=== PATIENT | female | born 1935 | race Caucasian/White ===

== ENCOUNTER 2016-12-29 10:38 | Emergency (ER) | payer MEDICARE ==
--- NOTE | 2016-12-29 11:13 | ED ---
Chest Pain HPI - General Chief Complaint: Chest Pain Stated Complaint: HEARTBURN, VOMITING Time Seen by Provider: 12/29/16 11:00 Source: patient, RN notes reviewed Mode of arrival: ambulatory Limitations: no limitations - History of Present Illness Initial Comments: This is a 81-year-old female history of hiatal hernia with repair and history of CVA who states she was eating breakfast today when she suddenly Cenestin difficulty with swallowing she felt like she couldn't swallow she socially vomited up her breakfast. She feels like she has to burp she denies any overt pain fevers chills sweats or other symptoms no chest or abdominal pain at this time. She is not had any history of esophageal obstruction no known history of heart disease. She has no compressive palpitations or other symptoms. MD Complaint: other - Related Data Home Medications Medication Instructions Recorded Confirmed Losartan Potassium [Cozaar] 50 mg PO DAILY 04/03/14 12/29/16 ALPRAZolam [Xanax] 0.25 mg PO TID PRN 09/10/14 12/29/16 Nitroglycerin Sl Tabs [Nitrostat] 0.4 mg SUBLINGUAL Q5M PRN 09/10/14 12/29/16 Aspirin EC [Ecotrin] 81 mg PO DAILY 10/18/14 12/29/16 Ca/D3/Mag/Zinc/Edna/Crow/Mgbor 1 tab PO DAILY 10/18/14 12/29/16 [Caltrate 600+D3+Min Chew Tab] Multivit-Min/FA/Lycopene/Lut 1 tab PO DAILY 10/18/14 12/29/16 [Centrum Silver Tablet] Rivaroxaban [Xarelto] 20 mg PO DAILY 10/18/14 12/29/16 Vit C/E/Zn/Coppr/Lutein/Zeaxan 1 cap PO BID 10/18/14 12/29/16 [Preservision Areds 2 Softgel] Atenolol [Tenormin] 75 mg PO DAILY 12/29/16 12/29/16 Propafenone [Rythmol] 75 mg PO TID 12/29/16 12/29/16 Allergies Allergy/AdvReac Type Severity Reaction Status Date / Time atorvastatin calcium Allergy Abdominal Verified 12/29/16 12:51 [From Lipitor] Pain epinephrine Allergy Rapid Verified 12/29/16 12:51 Heart Rate Fubkqjg-Mlu-Edj Reductase Allergy SEVERE Verified 12/29/16 12:51 Inhibitor MUSCLE PAIN Review of Systems ROS Statement: Those systems with pertinent positive or pertinent negative responses have been documented in the HPI. ROS Other: All systems not noted in ROS Statement are negative. EKG Findings - EKG Results: EKG: interpreted by MIGUEL A, sinus rhythm (Sinus rhythm rate 62. Interval 168 QRS 74 QT since QTC of 46/412 artifact is present but this appears be a normal EKG.) Past Medical History Past Medical History: Chest Pain / Angina, CVA/TIA, Eye Disorder, GERD/Reflux, Hyperlipidemia, Hypertension, Osteoarthritis (OA) Additional Past Medical History / Comment(s): MACULAR DEGENERATION GISELLE EYES, VARICOSE VEINS, DIVERTICULOSIS, HIATAL HERNIA, HEMORRHOIDS, ANEMIA, BASAL CELL SKIN CA History of Any Multi-Drug Resistant Organisms: None Reported Past Surgical History: Appendectomy, Cholecystectomy, Heart Catheterization, Hernia Repair, Hysterectomy Additional Past Surgical History / Comment(s): LASER VEIN SURGERY,GISELLE CATARACT SURGERY, LT KNEE ARTHROSCOPY, LT KNEE REPLACEMENT, EGD, COLONOSCOPY Past Anesthesia/Blood Transfusion Reactions: No Reported Reaction Past Psychological History: No Psychological Hx Reported Smoking Status: Never smoker Past Alcohol Use History: None Reported Past Drug Use History: None Reported - Past Family History Brother(s) Family Medical History: CVA/TIA, Myocardial Infarction ([place]) Mother Family Medical History: Cancer, Deep Vein Thrombosis (DVT) Additional Family Medical History / Comment(s): BREAST Father Family Medical History: Cancer Additional Family Medical History / Comment(s): PANCREATIC General Exam - General Exam Comments Initial Comments: This is a well-developed well-nourished awake alert oriented 3 female Limitations: no limitations General appearance: alert, anxious Head exam: Present: atraumatic, normocephalic, normal inspection Eye exam: Present: normal appearance, PERRL, EOMI. Absent: scleral icterus, conjunctival injection, periorbital swelling ENT exam: Present: normal exam, mucous membranes moist Neck exam: Present: normal inspection. Absent: tenderness, meningismus, lymphadenopathy Respiratory exam: Present: normal lung sounds bilaterally. Absent: respiratory distress, wheezes, rales, rhonchi, stridor Cardiovascular Exam: Present: regular rate, normal rhythm, normal heart sounds. Absent: systolic murmur, diastolic murmur, rubs, gallop, clicks GI/Abdominal exam: Present: soft, normal bowel sounds. Absent: distended, tenderness, guarding, rebound, rigid Extremities exam: Present: normal inspection, full ROM, normal capillary refill. Absent: tenderness, pedal edema, joint swelling, calf tenderness Back exam: Present: normal inspection Neurological exam: Present: alert, oriented X3, CN II-XII intact Psychiatric exam: Present: normal affect, normal mood Skin exam: Present: warm, dry, intact, normal color. Absent: rash Course Vital Signs 12/29/16 12/29/16 12/29/16 10:49 11:14 11:25 Temperature 98.5 F Pulse Rate 67 60 Pulse Rate [ 54 L Left Pulse Oximetery] Respiratory 18 16 Rate Blood Pressure 179/88 205/97 O2 Sat by Pulse 98 96 Oximetry 12/29/16 12/29/16 12/29/16 11:57 12:17 13:32 Temperature 97.9 F Pulse Rate 68 49 L Pulse Rate [ Left Pulse Oximetery] Respiratory 20 16 Rate Blood Pressure 208/91 160/76 159/74 O2 Sat by Pulse 99 Oximetry Chest Pain MDM - MDM I did discuss the case with the patient and her . I did discuss case Dr. Christian who did recommend a barium swallow. The test was performed and the patient does demonstrate a stricture but is passing contrast material. Patient will be discharged as discussed with follow-up in the office in 3 days. She is instructed use only liquid diet for the weekend. She will return if any problems. Disposition Clinical Impression: Esophageal stricture, Dysphasia Disposition: HOME SELF-CARE Condition: Good Instructions: Esophageal Stricture (ED) Additional Instructions: Liquid diet as tolerated Referrals: Kamar Chris MD [Primary Care Provider] - 1-2 days Eric Christian MD [STAFF PHYSICIAN] - 1-2 days
[2016-12-29 11:30] LABS: Basophils # (A) 0.1 k/uL (0-0.2); Basophils % (A) 2 %; CH 31.8; CHCM 32.2; Eosinophils # (A) 0.3 k/uL (0-0.7); Eosinophils % (A) 5 %; HCT 43.5 % (34.0-46.0); HDW 2.07; HGB 13.9 gm/dL (11.4-16.0); Luc # (Auto) 0.13; Luc % (Auto) 3; Lymphocytes # (A) 1.3 k/uL (1.0-4.8); Lymphocytes % (A) 30 %; MCH 31.8 pg (25.0-35.0); MCV 99.3 fL (80.0-100.0); Mean Platelet Volume 7.3; Monocytes # (A) 0.3 k/uL (0-1.0); Monocytes % (A) 8 %; Neutrophils # (A) 2.4 k/uL (1.3-7.7); Neutrophils % (A) 53 %; RBC 4.38 m/uL (3.80-5.40); RDW 13.1 % (11.5-15.5); WBC 4.6 k/uL (3.8-10.6); WBC (Perox) 4.43
[2016-12-29 11:40] LABS: ALT 32 U/L (9-52); AST 27 U/L (14-36); Alkaline Phosphatase 80 U/L (38-126); Amylase 127 U/L (30-110); Anion Gap 8 mmol/L; Blood Urea Nitrogen 21 mg/dL (7-17); Calcium 9.2 mg/dL (8.4-10.2); Carbon Dioxide 28 mmol/L (22-30); Chloride 106 mmol/L (98-107); Glucose 94 mg/dL (74-99); Non-African American GFR(MDRD) >60 (>60 ml/min/1.73 sqM); Potassium 3.8 mmol/L (3.5-5.1); Sodium 142 mmol/L (137-145); Total Bilirubin 0.4 mg/dL (0.2-1.3); Total Protein 7.4 g/dL (6.3-8.2)
[2016-12-29 11:41] LABS: INR 1.3 (<1.2); Partial Thromboplastin Time 28.2 sec (22.0-30.0); Prothrombin Time 12.6 sec (9.0-12.0)
[2016-12-29 11:59] LABS: Creatine Kinase 64 U/L (30-135)
[2016-12-29] MEDS ORDERED: GLUCAGON 1 MG/ML VIAL IVP STA (12:07)
[2016-12-29 12:11] LABS: Troponin I <0.012 ng/mL (0.000-0.034)
[2016-12-29 12:16] LABS: Creatine Kinase MB 3.4 ng/mL (0.0-2.4)
--- NOTE | 2016-12-29 12:46 | XR ---
EXAMINATION TYPE: XR chest 2V DATE OF EXAM: 12/29/2016 COMPARISON: 04/05/2014 HISTORY: Chest pain, hypertension and prior CVA. TECHNIQUE: Frontal and lateral views of the chest are obtained. FINDINGS: Biapical lucencies, pulmonary hyperinflation and tapering of the pulmonary vasculature rel ate to underlying COPD. Eventration of the right hemidiaphragm and chronic left basilar subsegmental atelectasis or pleural parenchymal scarring are noted. There is generalized osseous demineralization and mild degenerative changes of the thoracic spine. Atheromatous changes are seen of the abdominal a jonathan. Cholecystectomy clips are noted within the right upper quadrant. Cardiac size is within normal limits. IMPRESSION: Radiographic sequela of COPD with no focal consolidation to suggest pneumonia. No acute cardiac pulmonary process.
--- NOTE | 2016-12-29 15:07 | FL ---
EXAMINATION TYPE: FL esophagus cervic/pharynx DATE OF EXAM: 12/29/2016 HISTORY: Prior Angela fundoplication in 2013. Patient describes food getting stuck in her distal esop hagus for months with worsening today. COMPARISON: NONE TECHNIQUE: A single contrast esophagram is performed utilizing barium. Fluoroscopy time of 1 minute 15 seconds. FINDINGS: The proximal esophagus demonstrates normal esophageal motility with a nonocclusive short segment stri cture at the gastroesophageal junction seen on images 18, 19, 20, and 21. Small hiatal hernia is also evident. No evidence of leak is present. Mild dilatation of the proximal esophagus is secondary to t he moderate degree stricture. IMPRESSION: Short segment distal esophageal moderate degree stricture just above the gastroesophagea l junction and small residual or recurrent hiatal hernia.
[2016-12-29 16:10] VITALS: BP 163/75; PULSE 50; RESP 18; TEMP 97.1
== END 2016-12-29 16:02 | disposition home or self-care (01) ==
LOC: EC 10:38
DX: K22.2 Esophageal obstruction (principal); K21.9 Gastro-esophageal reflux disease without esophagitis; I10 Essential (primary) hypertension; Z85.828 Personal history of other malignant neoplasm of skin; Z95.5 Presence of coronary angioplasty implant and graft; Z86.73 Personal history of transient ischemic attack (TIA), and cerebral infarction without residual deficits; Z79.82 Long term (current) use of aspirin; Z79.899 Other long term (current) drug therapy; Z88.8 Allergy status to other drugs, medicaments and biological substances
CPT/HCPCS: 99285; 96374; 36415; 93005; 83880; 80053; 82150; 82550; 82553; 83690; 83735; 84484; 85025; 85610; 85730; 71020; 74210; J1610

== ENCOUNTER 2017-01-03 09:15 | Day surgery (SDC) | payer MEDICARE ==
[2017-01-02 09:08] VITALS: BMI 20.9
[~2017-01-03 09:15] MED LIST: LACTATED RINGERS 1,000 ML IV SCH; LIDOCAINE 1% 20 ML VIAL (10MG/ML) FOR IV START INTRADERMA PRN
[2017-01-03 09:54] VITALS: TEMP 97.4
[2017-01-03] MEDS ORDERED: LIDOCAINE 1% INJ 10MG/ML (20 ML MDV) ONE (13:07)
[2017-01-03] MEDS ORDERED: PROPOFOL 10 MG/ML 20 ML VIAL IV ONE (13:07)
--- NOTE | 2017-01-03 13:10 | P.GSHP ---
History of Present Illness H&P Date: 01/03/17 Chief Complaint: Dysphagia This is a 81-year-old female who presents today for EGD. Patient's a known history of dysphagia and GERD. He's had trouble swallowing solid foods. Past Medical History Past Medical History: Atrial Fibrillation, Chest Pain / Angina, CVA/TIA, Eye Disorder, GERD/Reflux, Hyperlipidemia, Hypertension, Osteoarthritis (OA) Additional Past Medical History / Comment(s): MACULAR DEGENERATION GISELLE EYES, HX. VARICOSE VEINS, DIVERTICULOSIS, HIATAL HERNIA, HEMORRHOIDS, ANEMIA, BASAL CELL SKIN CA, stroked 2013-no residual effects, recent problems w/dysphagia- seen in [facility] 12-29-16 History of Any Multi-Drug Resistant Organisms: None Reported Past Surgical History: Appendectomy, Cholecystectomy, Heart Catheterization, Hernia Repair, Hysterectomy Additional Past Surgical History / Comment(s): LASER VEIN SURGERY,GISELLE CATARACT SURGERY, LT KNEE ARTHROSCOPY, LT KNEE REPLACEMENT, EGD, COLONOSCOPY, radha fundoplasty 2013 Past Anesthesia/Blood Transfusion Reactions: No Reported Reaction Additional Past Anesthesia/Blood Transfusion Reaction / Comment(s): claustrophobic Smoking Status: Never smoker - Past Family History Brother(s) Family Medical History: CVA/TIA, Myocardial Infarction ([place]) Mother Family Medical History: Cancer, Deep Vein Thrombosis (DVT) Additional Family Medical History / Comment(s): BREAST Father Family Medical History: Cancer Additional Family Medical History / Comment(s): PANCREATIC Medications and Allergies Home Medications Medication Instructions Recorded Confirmed Type Losartan Potassium [Cozaar] 50 mg PO DAILY 04/03/14 01/03/17 History ALPRAZolam [Xanax] 0.25 mg PO TID PRN 09/10/14 01/03/17 History Nitroglycerin Sl Tabs [Nitrostat] 0.4 mg SUBLINGUAL Q5M PRN 09/10/14 01/02/17 History Aspirin EC [Ecotrin] 81 mg PO DAILY 10/18/14 01/03/17 History Ca/D3/Mag/Zinc/Edna/Crow/Mgbor 1 tab PO DAILY 10/18/14 01/03/17 History [Caltrate 600+D3+Min Chew Tab] Multivit-Min/FA/Lycopene/Lut 1 tab PO DAILY 10/18/14 01/03/17 History [Centrum Silver Tablet] Rivaroxaban [Xarelto] 20 mg PO DAILY 10/18/14 01/03/17 History Vit C/E/Zn/Coppr/Lutein/Zeaxan 1 cap PO BID 10/18/14 01/03/17 History [Preservision Areds 2 Softgel] Atenolol [Tenormin] 75 mg PO DAILY 12/29/16 01/03/17 History Propafenone [Rythmol] 75 mg PO TID 12/29/16 01/03/17 History Allergies Allergy/AdvReac Type Severity Reaction Status Date / Time atorvastatin calcium Allergy Abdominal Verified 01/02/17 08:43 [From Lipitor] Pain epinephrine Allergy Rapid Verified 01/02/17 08:43 Heart Rate Npmhadb-Jfg-Udq Reductase Allergy SEVERE Verified 01/02/17 08:43 Inhibitor MUSCLE PAIN Surgical - Exam Vital Signs Temp Pulse Resp BP Pulse Ox 97.4 F L 60 16 186/81 98 01/03/17 09:53 01/03/17 09:53 01/03/17 09:53 01/03/17 09:53 01/03/17 09:53 - General well developed, no distress - Eyes PERRL - ENT normal pinna - Neck no masses - Respiratory normal expansion - Cardiovascular Rhythm: regular - Abdomen Abdomen: soft, non tender Assessment and Plan Assessment: Dysphagia, GERD. History of hiatal hernia. We'll perform EGD.
--- NOTE | 2017-01-03 13:22 | P.OP ---
Date of Procedure: 01/03/17 Preoperative Diagnosis: GERD Dysphagia Postoperative Diagnosis: Esophageal stricture Procedure(s) Performed: EGD with balloon dilatation Anesthesia: MAC Surgeon: rEic Christian Pathology: none sent Condition: stable Description of Procedure: The patient's placed on the endoscopy table lateral position. She received IV sedation. The gastroscope placed oropharynx and passed in the esophagus. The scope was then placed through the GE junction into stomach and then through the pylorus. The first portion duodenum appeared normal. Scope was brought back the antrum this appeared normal. Scope was unretroflexed and the patient a previous fundal plication wrap. Scope was then brought back. There appeared to be evidence of a small hiatal hernia. The opening through the fundal plication appeared to be quite tight. At this point a 20 mm balloon was placed across fundal plication area. It was unclear if the fundoplication had slipped. There is evidence of an esophageal stricture and this was dilated with the balloon. There is no evidence of any injury to the mucosa once the balloon was inflated. The balloon was withdrawn. The scope passed easily beyond the GE junction. The scope was then withdrawn. The proximal esophagus appeared normal. Scope was withdrawn for patient.
[2017-01-03 13:43] VITALS: RESP 16
[2017-01-03 14:08] VITALS: BP 133/79; PULSE 59
== END 2017-01-03 14:18 | disposition home or self-care (01) ==
LOC: ORWHC2ENDO 09:15
PROVIDERS: ATTEND Surgery
DX: K22.2 Esophageal obstruction (principal); K21.9 Gastro-esophageal reflux disease without esophagitis; I48.91 Unspecified atrial fibrillation; Z86.73 Personal history of transient ischemic attack (TIA), and cerebral infarction without residual deficits; E78.5 Hyperlipidemia, unspecified; I10 Essential (primary) hypertension; M19.90 Unspecified osteoarthritis, unspecified site; H35.30 Unspecified macular degeneration; Z85.828 Personal history of other malignant neoplasm of skin; Z79.82 Long term (current) use of aspirin; Z79.01 Long term (current) use of anticoagulants; Z79.899 Other long term (current) drug therapy; Z88.8 Allergy status to other drugs, medicaments and biological substances
CPT/HCPCS: 43249; J2001; J2704; C1726

== ENCOUNTER 2017-05-10 20:23 | Emergency (ER) | payer MEDICARE ==
[2017-05-10 20:32] VITALS: TEMP 97.1
--- NOTE | 2017-05-10 21:09 | ED ---
General Adult HPI - General Chief complaint: Nausea/Vomiting/Diarrhea Stated complaint: blood in urine Time Seen by Provider: 05/10/17 21:01 Source: patient, family, RN notes reviewed Mode of arrival: ambulatory Limitations: no limitations - History of Present Illness Initial comments: Patient is a pleasant 81-year-old female presenting to the emergency Department with hematuria. Symptoms have been occurring for several weeks. Patient is on Xarelto secondary to history of stroke and atrial fibrillation. No dysuria. Patient did have some diarrhea however that has resolved. No known rectal bleeding. Patient has had dark urine with concern for blood. No abdominal pain. - Related Data Home Medications Medication Instructions Recorded Confirmed Losartan Potassium [Cozaar] 50 mg PO DAILY 04/03/14 05/10/17 ALPRAZolam [Xanax] 0.25 mg PO TID PRN 09/10/14 05/10/17 Nitroglycerin Sl Tabs [Nitrostat] 0.4 mg SUBLINGUAL Q5M PRN 09/10/14 05/10/17 Rivaroxaban [Xarelto] 20 mg PO DAILY 10/18/14 05/10/17 Atenolol [Tenormin] 75 mg PO DAILY 12/29/16 05/10/17 Vit C/E/Zn/Coppr/Lutein/Zeaxan 1 cap PO BID 03/19/17 05/10/17 [Preservision Areds 2 Softgel] Propafenone [Rythmol] 75 mg PO Q8HR 05/10/17 05/10/17 Previous Rx's Medication Instructions Recorded Sulfamethox-Tmp 800-160Mg [Bactrim 1 each PO Q12HR #20 tab 05/10/17 DS 800-160 mg] Allergies Allergy/AdvReac Type Severity Reaction Status Date / Time atorvastatin calcium Allergy Abdominal Verified 05/10/17 21:18 [From Lipitor] Pain epinephrine Allergy Rapid Verified 05/10/17 21:18 Heart Rate levofloxacin [From Levaquin] Allergy Unknown Verified 05/10/17 21:18 rosuvastatin [From Crestor] Allergy Unknown Verified 05/10/17 21:18 Udqjwwc-Asj-Imo Reductase Allergy SEVERE Verified 05/10/17 21:18 Inhibitor MUSCLE PAIN Review of Systems ROS Statement: Those systems with pertinent positive or pertinent negative responses have been documented in the HPI. ROS Other: All systems not noted in ROS Statement are negative. Constitutional: Denies: fever Eyes: Denies: eye pain ENT: Denies: ear pain Respiratory: Denies: cough Cardiovascular: Denies: chest pain Endocrine: Denies: fatigue Gastrointestinal: Denies: abdominal pain, nausea, vomiting Genitourinary: Reports: hematuria. Denies: urgency, dysuria, frequency Musculoskeletal: Denies: back pain Skin: Denies: rash Neurological: Denies: weakness Past Medical History Past Medical History: Atrial Fibrillation, Chest Pain / Angina, CVA/TIA, Eye Disorder, GERD/Reflux, Hyperlipidemia, Hypertension, Osteoarthritis (OA) Additional Past Medical History / Comment(s): MACULAR DEGENERATION GISELLE EYES, HX. VARICOSE VEINS, DIVERTICULOSIS, HIATAL HERNIA, HEMORRHOIDS, ANEMIA, BASAL CELL SKIN CA, stroked 2013-no residual effects, recent problems w/dysphagia- seen in EC 12-29-16 History of Any Multi-Drug Resistant Organisms: None Reported Past Surgical History: Appendectomy, Cholecystectomy, Heart Catheterization, Hernia Repair, Hysterectomy Additional Past Surgical History / Comment(s): LASER VEIN SURGERY,GISELLE CATARACT SURGERY, LT KNEE ARTHROSCOPY, LT KNEE REPLACEMENT, EGD, COLONOSCOPY, radha fundoplasty 2014, " throat stretched." Past Anesthesia/Blood Transfusion Reactions: No Reported Reaction Additional Past Anesthesia/Blood Transfusion Reaction / Comment(s): claustrophobic Past Psychological History: Anxiety Smoking Status: Never smoker Past Alcohol Use History: None Reported Past Drug Use History: None Reported - Past Family History Brother(s) Family Medical History: CVA/TIA, Myocardial Infarction ([place]) Mother Family Medical History: Cancer, Deep Vein Thrombosis (DVT) Additional Family Medical History / Comment(s): BREAST Father Family Medical History: Cancer Additional Family Medical History / Comment(s): PANCREATIC General Exam Limitations: no limitations General appearance: alert, in no apparent distress Head exam: Present: atraumatic Eye exam: Present: normal appearance, PERRL ENT exam: Present: normal oropharynx Neck exam: Present: normal inspection Respiratory exam: Present: normal lung sounds bilaterally Cardiovascular Exam: Present: regular rate, normal rhythm. Absent: irregular rhythm GI/Abdominal exam: Present: soft. Absent: distended, tenderness, guarding, rebound, rigid Extremities exam: Present: normal inspection Neurological exam: Present: alert Psychiatric exam: Present: normal affect, normal mood Skin exam: Present: normal color Course Vital Signs 05/10/17 05/10/17 20:25 20:33 Temperature 97.1 F L Pulse Rate 66 Respiratory 18 Rate Blood Pressure 210/100 203/91 O2 Sat by Pulse 97 Oximetry EKG Findings - EKG Comments: EKG Findings:: Sinus bradycardia 53. NH 182. QRS 88. QT 454. QTC 426. Normal axis. Normal QRS. No acute ST change. Medical Decision Making - Medical Decision Making Patient reevaluated. Patient and family updated on results and plan and need for follow-up. - Lab Data Lab Results 05/10/17 Range/Units 21:07 Urine Color Red Urine Appearance Turbid H (Clear) Urine pH 5.5 (5.0-8.0) Ur Specific [place] 1.020 (1.001-1.035) Urine Protein 2+ H (Negative) Urine Glucose (UA) Negative (Negative) Urine Ketones Negative (Negative) Urine Blood Large H (Negative) Urine Nitrite Positive H (Negative) Urine Bilirubin Negative (Negative) Urine Urobilinogen <2.0 (<2.0) mg/dL Ur Leukocyte Esterase Large H (Negative) Urine RBC >182 H (0-5) /hpf Urine WBC 73 H (0-5) /hpf Urine Bacteria Rare H (None) /hpf Urine Mucus Few H (None) /hpf Urine Yeast (Budding) Many H (None) /hpf Disposition Clinical Impression: Urinary tract infection, Hematuria Disposition: HOME SELF-CARE Condition: Stable Instructions: Hematuria (ED), Urinary Tract Infection in Women (ED) Additional Instructions: Please follow-up with primary care physician in the next day or 2 for recheck. Hold Xarelto for the next 2-3 days, until further advised by primary care physician. Return for fevers, vomiting, increased pain, worsening symptoms or other concerns. If symptoms continue, you will need urology evaluation Prescriptions: Sulfamethox-Tmp 800-160Mg [Bactrim DS 800-160 mg] 1 each PO Q12HR #20 tab Referrals: Kamar Chris MD [Primary Care Provider] - 1-2 days Andrez Albarado MD [STAFF PHYSICIAN] - 1-2 days Time of Disposition: 22:23
[2017-05-10 21:21] LABS: Appearance,Urine Turbid (Clear); Bacteria,Urine Rare /hpf; Bilirubin,Urine Negative (Negative); Blood,Urine Large (Negative); Budding Yeast,Urine Many /hpf; Color,Urine Red; Glucose,Urine (UA) Negative (Negative); Ketones,Urine Negative (Negative); Leukocyte Esterase,Urine Large (Negative); Mucus,Urine Few /hpf; Nitrite,Urine Positive (Negative); PH, Urine 5.5 (5.0-8.0); Protein,Urine 2+ (Negative); RBC,Urine >182 /hpf (0-5); Urobilinogen,Urine <2.0 mg/dL (<2.0); WBC,Urine 73 /hpf (0-5)
[2017-05-10 22:35] VITALS: BP 167/79; PULSE 51; RESP 16
== END 2017-05-10 22:37 | disposition home or self-care (01) ==
LOC: EC 20:23
DX: N39.0 Urinary tract infection, site not specified (principal); I48.91 Unspecified atrial fibrillation; I10 Essential (primary) hypertension; Z86.73 Personal history of transient ischemic attack (TIA), and cerebral infarction without residual deficits; Z85.828 Personal history of other malignant neoplasm of skin; Z95.5 Presence of coronary angioplasty implant and graft; Z79.01 Long term (current) use of anticoagulants; Z79.899 Other long term (current) drug therapy; Z88.8 Allergy status to other drugs, medicaments and biological substances; Z88.1 Allergy status to other antibiotic agents
CPT/HCPCS: 81001; 87086; 93005; 99283

== ENCOUNTER → 2017-05-31 | Outpatient (CLI) | payer MEDICARE ==
--- NOTE | 2017-05-31 18:54 | US ---
EXAMINATION TYPE: US kidneys/renal and bladder DATE OF EXAM: 05/31/2017 COMPARISON: CT 10/20/2013 CLINICAL HISTORY: Hematuria R31.9. EXAM MEASUREMENTS: Right Kidney: 9.2 x 3.7 x 4.4 cm Left Kidney: 10.5 x 5.0 x 4.9 cm Right Kidney: Cystic area mid pole measuring 1.5 x 1.1 x 1.3 cm, possible parapelvic cyst vs prominen t renal pelvis Left Kidney: Cystic area mid pole measuring 0.6 x 0.7 x 0.8 cm, possible parapelvic cyst Bladder: wnl Bilateral Jets seen: Yes There is no evidence for hydronephrosis at this point in time. No nephrolithiasis is seen. The urina ry bladder is anechoic. Bilateral ureteral jets are seen. IMPRESSION: Simple cysts noted bilaterally. Mild renal parenchymal thinning.
== END | disposition home or self-care (01) ==
LOC: RADUSWWP 15:08
PROVIDERS: ATTEND Family Medicine
DX: R31.9 Hematuria, unspecified (principal); N28.1 Cyst of kidney, acquired
CPT/HCPCS: 76770

== ENCOUNTER → 2017-09-13 | Outpatient (CLI) | payer MEDICARE ==
--- NOTE | 2017-09-13 14:19 | CT ---
EXAMINATION TYPE: CT abdomen pelvis w con DATE OF EXAM: 09/13/2017 HISTORY: Patient complains of chronic microscopic hematuria. CT DLP: 405.6mGycm Automated Exposure Control for Dose Reduction was Utilized. CONTRAST: CT scan of the abdomen and pelvis is performed with IV Contrast, patient injected with 100 mL of Isov ue 300. COMPARISON: Renal ultrasound dated 05/31/2017. CT abdomen pelvis dated 10/20/2013. FINDINGS: LUNG BASES: No significant abnormality is appreciated. LIVER/GB: Stable fluid attenuated left hepatic lobe cyst measures approximately 1 cm. No additional m asses are identified within the liver. No intrahepatic biliary duct dilatation. Cholecystectomy clips are noted within the right upper quadrant. PANCREAS: No significant abnormality is seen. No pancreatic ductal dilatation. SPLEEN: No splenomegaly. ADRENALS: Very mild symmetric thickening of the adrenal glands is seen although the adrenal glands ma intain their normal adreniform shape, therefore findings likely relate to benign adrenal gland hyperp lasia. KIDNEYS: Approximately 4 mm right lower pole renal lesion seen on coronal series 8 image 49 is too sm all to accurately characterize. This is only minimally increased in size from the prior exam of 014 where this measured 2 to 3 mm. Note is again made of bilateral extrarenal pelvises and mild pelvo caliectasis. No hydronephrosis or evidence of obstructive uropathy. Urinary bladder is incompletely d istended although no gross abnormality is identified. BOWEL: Surgical clips are noted at the gastroesophageal junction with a small distal esophageal diver ticulum, likely portion diverticulum. Small amount retained contrast is seen within the distal esopha femi that may relate to mild gastroesophageal reflux or delayed propulsion. Multiple colonic diverticu la are seen without pericolonic fat stranding. Mild amount of retained colonic stool is noted. Contra st extends to the ascending colon and remainder the colon is somewhat limited in evaluation. Terminal ileum is unremarkable. No large or small bowel dilatation. LYMPH NODES: No greater than 1cm abdominal or pelvic lymph nodes are appreciated. OSSEOUS STRUCTURES: There is a levoscoliosis of the lumbar spine. Multilevel moderate degenerative ch anges are noted. Sacroiliac joint sclerosis is also likely degenerative as well as degenerative cysti c changes of the pubic symphysis and mild femoral acetabular arthropathy. There is a grade 2 anteroli sthesis of L4 on L5 presumed to be on a degenerative basis. OTHER: Extensive atheromatous plaquing is seen of the abdominal aorta and its branches. Abdominal aor ta is of normal course and caliber. IMPRESSION: No evidence of obstructive uropathy or suspicious renal mass. There is a right lower pole 4 mm renal lesion that is too small to accurately characterize for which surveillance could be performed as this is only very minimally increased in size in comparison to exam of 10/20/2013. Urinary bladder is incom pletely distended although no gross abnormality is seen to correspond with this patient's microscopic hematuria.
== END | disposition home or self-care (01) ==
LOC: RADCTMAIN 11:24
PROVIDERS: ATTEND Urology
DX: N28.89 Other specified disorders of kidney and ureter (principal); R31.9 Hematuria, unspecified
CPT/HCPCS: 82565; 84520; 74177; 36415; Q9967

== ENCOUNTER → 2017-12-12 | Day surgery (SDC) | payer MEDICARE ==
[2017-12-11 09:32] VITALS: BMI 22.6
== END ==
LOC: ORWHC2ENDO 08:18
PROVIDERS: ATTEND Internal Medicine Gastroenterology
DX: Z53.9 Procedure and treatment not carried out, unspecified reason (principal)

== ENCOUNTER → 2017-12-24 | Outpatient (CLI) | payer MEDICARE ==
--- NOTE | 2017-12-26 10:48 | MM ---
Reason for exam: screening (asymptomatic). Last mammogram was performed 1 year ago. History: Patient is postmenopausal and history of other cancer. Family history of breast cancer in mother at age 67. Physical Findings: A clinical breast exam by your physician is recommended on an annual basis and results should be correlated with mammographic findings. MG 3D Screening Mammo W/Cad Bilateral CC and MLO view(s) were taken. Prior study comparison: December 22, 2016, bilateral MG 3d screening mammo w/cad. September 14, 2015, bilateral MG screening mammo w CAD. There are scattered fibroglandular densities. There is chronic nodularity bilaterally. No significant changes when compared with prior studies. ASSESSMENT: Benign, BI-RAD 2 RECOMMENDATION: Routine screening mammogram of both breasts in 1 year.
== END ==
LOC: RADMAMWWP 09:26
PROVIDERS: ATTEND Obstetrics & Gynecology
DX: Z12.31 Encounter for screening mammogram for malignant neoplasm of breast (principal); Z80.3 Family history of malignant neoplasm of breast
CPT/HCPCS: 77063; 77067

== ENCOUNTER → 2018-11-14 | Outpatient (CLI) | payer MEDICARE ==
[2018-11-14 17:10] LABS: Chol/HDL Ratio 2.72; LDL Cholesterol,Calculated 71.2 mg/dL (0.0-131.0); VLDL Calculation 26.8 mg/dL (5.00-40.00)
== END | disposition home or self-care (01) ==
LOC: LABWHC1 07:39
PROVIDERS: ATTEND Internal Medicine Interventional Cardiology
DX: E78.5 Hyperlipidemia, unspecified (principal)
CPT/HCPCS: 36415; 80061; 82550; 84450; 84460

== ENCOUNTER 2018-12-08 22:41 | Inpatient (IN) | payer MEDICARE ==
[2018-12-08] MEDS ORDERED: ACETAMINOPHEN TAB 325 MG TAB PO STA (23:28)
[2018-12-08 23:43] LABS: Basophils # (A) 0.1 k/uL (0-0.2); Basophils % (A) 1 %; Eosinophils # (A) 0.1 k/uL (0-0.7); Eosinophils % (A) 1 %; HCT 34.3 % (34.0-46.0); HGB 11.5 gm/dL (11.4-16.0); Lymphocytes # (A) 0.9 k/uL (1.0-4.8); Lymphocytes % (A) 11 %; MCH 32.6 pg (25.0-35.0); MCHC 33.6 g/dL (31.0-37.0); MCV 96.9 fL (80.0-100.0); Mean Platelet Volume 6.4; Monocytes # (A) 0.4 k/uL (0-1.0); Monocytes % (A) 5 %; Neutrophils # (A) 6.2 k/uL (1.3-7.7); Neutrophils % (A) 80 %; Platelet Count 215 k/uL (150-450); RBC 3.54 m/uL (3.80-5.40); RDW 12.6 % (11.5-15.5); WBC 7.8 k/uL (3.8-10.6)
--- NOTE | 2018-12-08 23:46 | XR ---
EXAMINATION TYPE: XR KUB DATE OF EXAM: 12/08/2018 COMPARISON: NONE HISTORY: Abdominal pain nausea. Fever TECHNIQUE: Single view upright FINDINGS: There is a few small bowel fluid levels with air. There are clips from cholecystectomy. The re is no evidence of a mass. Lung bases appear clear. There are no pathologic calcifications over the kidneys. IMPRESSION: There are a few small bowel fluid levels that could relate to ileus. No free air.
--- NOTE | 2018-12-08 23:47 | XR ---
EXAMINATION TYPE: XR chest 2V DATE OF EXAM: 12/08/2018 COMPARISON: 03/19/2017 HISTORY: Nausea TECHNIQUE: Frontal and lateral views of the chest are obtained. FINDINGS: There is no heart failure nor confluent pneumonic infiltrate. Costophrenic angles are tila r. Heart size is normal. Thoracic aorta is atheromatous. There is osteopenia. There is some arthritic change in the shoulder joints. IMPRESSION: No active cardiopulmonary disease. Normal heart. No change.
[2018-12-08 23:58] LABS: Albumin 3.7 g/dL (3.5-5.0); Calcium 8.8 mg/dL (8.4-10.2); Potassium 3.3 mmol/L (3.5-5.1); Total Bilirubin 0.5 mg/dL (0.2-1.3); Total Protein 6.5 g/dL (6.3-8.2)
[2018-12-09 00:25] LABS: Appearance,Urine Cloudy (Clear); Bacteria,Urine Occasional /hpf; Bilirubin,Urine Negative (Negative); Blood,Urine Small (Negative); Color,Urine Yellow; Glucose,Urine (UA) Negative (Negative); Ketones,Urine Negative (Negative); Leukocyte Esterase,Urine Large (Negative); Mucus,Urine Rare /hpf; Nitrite,Urine Positive (Negative); PH, Urine 5.5 (5.0-8.0); Protein,Urine 1+ (Negative); RBC,Urine 39 /hpf (0-5); Specific Gravity,Urine 1.014 (1.001-1.035); Urobilinogen,Urine <2.0 mg/dL (<2.0)
--- NOTE | 2018-12-09 00:36 | CT ---
EXAMINATION TYPE: CT abdomen pelvis wo con DATE OF EXAM: 12/09/2018 COMPARISON: 09/13/2017 HISTORY: Right flank pain with ileus. LOW BACK PAIN. FEVER CT DLP: 400.6 mGycm Automated exposure control for dose reduction was used. TECHNIQUE: Helical acquisition of images was performed from the lung bases through the pelvis. FINDINGS: Multiple axial sections were obtained from the diaphragm to the floor the pelvis with no contrast. Lois ng bases are clear of consolidation. There is no pleural effusion. Heart size is normal. There is sma ll hiatal hernia. There are surgical clips at the gastric fundus. There are small calcified splenic g ranulomata. There is no evidence of pancreatic mass. There are clips from cholecystectomy. Bile ducts are not dilated. Liver shows no focal defect. There is no adrenal mass. Kidneys have normal size. There is mild right-sided hydronephrosis but no d efinite ureteral calculus seen. Bladder distends smoothly. There is some fullness of the proximal rig ht ureter. There is mild right-sided perinephric edema. Abdominal aorta is atheromatous. There is no retroperitoneal adenopathy. There is no inguinal hernia. There is no free fluid in the pelvis. There is no sign of a bowel obstru ction. Appendix is not seen. There is no sign of thickened appendix. There is no free air. There is n o mesenteric edema. There is a first-degree L4-5 spondylolisthesis. There is no compression fracture. Bony pelvis is intact. IMPRESSION: THERE IS MILD RIGHT-SIDED HYDRONEPHROSIS AND PROXIMAL HYDROURETER. NO DEFINITE OBSTRUCTING CALCULUS S EEN. THERE IS MILD RIGHT SIDE PERINEPHRIC EDEMA. THIS COULD RELATE TO OBSTRUCTION DUE TO NONOPAQUE ST ONE OR MASS OR RECENTLY PASSED STONE OR PYELONEPHRITIS. ABNORMALITY IS NEW COMPARED TO LAST EXAM. FOL LOW-UP RECOMMENDED.
[2018-12-09] MEDS ORDERED: cefTRIAXone IN SWFI 1,000 MG/10 ML SYRINGE IVP STA (00:44)
[2018-12-09] MEDS ORDERED: NALOXONE 0.4 MG/ML 1 ML VIAL IV PRN (00:50)
--- NOTE | 2018-12-09 00:50 | ED ---
Abdominal Pain HPI - General Chief Complaint: Abdominal Pain Stated Complaint: Shaking, Nausea Time Seen by Provider: 12/08/18 22:51 Source: patient, family, RN notes reviewed Mode of arrival: ambulatory Limitations: no limitations - History of Present Illness Initial Comments: This is a 83-year-old female who presents with complaints the onset of shaking chills this morning also decreased urine output. She complains also some vague right-sided flank pain. No overt fevers nausea vomiting diarrhea she denies any hematuria. No history kidney stone shows evidence for diverticular disease however. Currently no other modifying factors no cough or phlegm production no pain with movement no pain with breathing this Sunday pain to the right CVA betina on. MD Complaint: flank pain, other - Related Data Home Medications Medication Instructions Recorded Confirmed Nitroglycerin Sl Tabs [Nitrostat] 0.4 mg SUBLINGUAL Q5M PRN 09/10/14 12/08/18 Rivaroxaban [Xarelto] 20 mg PO DAILY 10/18/14 12/08/18 Atenolol [Tenormin] 50 mg PO DAILY 12/29/16 12/08/18 Propafenone [Rythmol] 75 mg PO Q8HR 05/10/17 12/08/18 Aspirin [Adult Low Dose Aspirin EC] 81 mg PO DAILY 12/11/17 12/08/18 Chlorthalidone 25 mg PO DAILY 12/11/17 12/08/18 hydrALAZINE HCL [Apresoline] 25 mg PO BID 12/11/17 12/08/18 Losartan [Cozaar] 50 mg PO DAILY 12/08/18 12/08/18 Rosuvastatin Calcium [Crestor] 5 mg PO Q48H 12/08/18 12/08/18 Allergies Allergy/AdvReac Type Severity Reaction Status Date / Time atorvastatin calcium Allergy Abdominal Verified 12/08/18 23:09 [From Lipitor] Pain epinephrine Allergy Rapid Verified 12/08/18 23:09 Heart Rate levofloxacin [From Levaquin] Allergy Unknown Verified 12/08/18 23:09 rosuvastatin [From Crestor] Allergy severe Verified 12/08/18 23:09 muscle pain Ecghztb-Iwk-Htg Reductase Allergy SEVERE Verified 12/08/18 23:09 Inhibitor MUSCLE PAIN Review of Systems ROS Statement: Those systems with pertinent positive or pertinent negative responses have been documented in the HPI. ROS Other: All systems not noted in ROS Statement are negative. Past Medical History Past Medical History: Atrial Fibrillation, Cancer, Chest Pain / Angina, CVA/TIA, Eye Disorder, GERD/Reflux, Hyperlipidemia, Hypertension, Osteoarthritis (OA) Additional Past Medical History / Comment(s): MACULAR DEGENERATION GISELLE EYES, DIVERTICULOSIS, HIATAL HERNIA (SURGERY)., HEMORRHOIDS, ANEMIA, BASAL CELL SKIN CA, CVA 2013-NO RESIDUAL EFFECTS., DYSPHAGIA - STATES CURRENTLY FOOD FEELS LIKE IT IS GETTING STUCK., STATES AFTER EATING SHE HAS BLOATING, GAS AND DIARRHEA., CLAUSTROPHOBIC. History of Any Multi-Drug Resistant Organisms: None Reported Past Surgical History: Appendectomy, Cholecystectomy, Heart Catheterization, Hernia Repair, Hysterectomy Additional Past Surgical History / Comment(s): LASER VEIN SURGERY,GISELLE CATARACT. LT KNEE ARTHROSCOPY, LT KNEE REPLACEMENT, EGD WITH DILATION., COLONOSCOPY, DIONISIO FUDOPLASTY (2013) . Past Anesthesia/Blood Transfusion Reactions: No Reported Reaction Additional Past Anesthesia/Blood Transfusion Reaction / Comment(s): claustrophobic Past Psychological History: Anxiety Smoking Status: Never smoker Past Alcohol Use History: None Reported Past Drug Use History: None Reported - Past Family History Brother(s) Family Medical History: CVA/TIA, Myocardial Infarction ([place]) Mother Family Medical History: Cancer, Deep Vein Thrombosis (DVT) Additional Family Medical History / Comment(s): BREAST CANCER Father Family Medical History: Cancer Additional Family Medical History / Comment(s): PANCREATIC CANCER General Exam - General Exam Comments Initial Comments: This is a well-developed well-nourished awake alert oriented 3 female Limitations: no limitations General appearance: alert, in no apparent distress Head exam: Present: atraumatic, normocephalic, normal inspection Eye exam: Present: normal appearance, PERRL, EOMI. Absent: scleral icterus, conjunctival injection, periorbital swelling ENT exam: Present: normal exam, mucous membranes moist Neck exam: Present: normal inspection. Absent: tenderness, meningismus, lymphadenopathy Respiratory exam: Present: normal lung sounds bilaterally. Absent: respiratory distress, wheezes, rales, rhonchi, stridor Cardiovascular Exam: Present: regular rate, normal rhythm, normal heart sounds. Absent: systolic murmur, diastolic murmur, rubs, gallop, clicks GI/Abdominal exam: Present: soft, tenderness (Mild right flank tenderness no guarding rebound masses or bruits), normal bowel sounds. Absent: distended, guarding, rebound, rigid Rectal exam: Present: deferred Extremities exam: Present: normal inspection, full ROM, normal capillary refill. Absent: tenderness, pedal edema, joint swelling, calf tenderness Back exam: Present: normal inspection, full ROM, CVA tenderness (R). Absent: muscle spasm, paraspinal tenderness, vertebral tenderness, rash noted Neurological exam: Present: alert, oriented X3, CN II-XII intact Psychiatric exam: Present: normal affect, normal mood Skin exam: Present: warm, dry, intact, normal color. Absent: rash Course Vital Signs 12/08/18 12/08/18 12/09/18 22:45 23:20 00:02 Temperature 99.2 F 102.1 F H Pulse Rate 84 82 86 Respiratory 16 15 18 Rate Blood Pressure 118/72 125/62 138/62 O2 Sat by Pulse 94 L 96 96 Oximetry 12/09/18 00:41 Temperature 102.6 F H Pulse Rate 79 Respiratory 14 Rate Blood Pressure 122/59 O2 Sat by Pulse 93 L Oximetry - Reevaluation(s) Reevaluation #1: 12/09/18 00:48 Reevaluation the patient during the course of initial evaluation revealed no change in her status Medical Decision Making - Medical Decision Making I did discuss the findings with the patient and her as well as other family members patient will be admitted for treatment of UTI and pyelonephritis I did discuss the case with Dr. Chris - Lab Data Result diagrams: 12/08/18 23:20 12/08/18 23:20 Lab Results 12/08/18 12/08/18 12/08/18 Range/Units 23:20 23:20 23:20 WBC 7.8 (3.8-10.6) k/uL RBC 3.54 L (3.80-5.40) m/uL Hgb 11.5 (11.4-16.0) gm/dL Hct 34.3 (34.0-46.0) % MCV 96.9 (80.0-100.0) fL MCH 32.6 (25.0-35.0) pg MCHC 33.6 (31.0-37.0) g/dL RDW 12.6 (11.5-15.5) % Plt Count 215 (150-450) k/uL Neutrophils % 80 % Lymphocytes % 11 % Monocytes % 5 % Eosinophils % 1 % Basophils % 1 % Neutrophils # 6.2 (1.3-7.7) k/uL Lymphocytes # 0.9 L (1.0-4.8) k/uL Monocytes # 0.4 (0-1.0) k/uL Eosinophils # 0.1 (0-0.7) k/uL Basophils # 0.1 (0-0.2) k/uL Sodium 138 (137-145) mmol/L Potassium 3.3 L (3.5-5.1) mmol/L Chloride 98 (98-107) mmol/L Carbon Dioxide 32 H (22-30) mmol/L Anion Gap 8 mmol/L BUN 25 H (7-17) mg/dL Creatinine 0.99 (0.52-1.04) mg/dL Est GFR (CKD-EPI)AfAm 61 (>60 ml/min/1.73 sqM) Est GFR (CKD-EPI)NonAf 53 (>60 ml/min/1.73 sqM) Glucose 117 H (74-99) mg/dL Plasma Lactic Acid Sammy 1.2 (0.7-2.0) mmol/L Calcium 8.8 (8.4-10.2) mg/dL Total Bilirubin 0.5 (0.2-1.3) mg/dL AST 26 (14-36) U/L ALT 15 (9-52) U/L Alkaline Phosphatase 75 (38-126) U/L Creatine Kinase 55 (30-135) U/L Troponin I (0.000-0.034) ng/mL Total Protein 6.5 (6.3-8.2) g/dL Albumin 3.7 (3.5-5.0) g/dL Amylase 54 (30-110) U/L Lipase 17 L (23-300) U/L Urine Color Urine Appearance (Clear) Urine pH (5.0-8.0) Ur Specific [place] (1.001-1.035) Urine Protein (Negative) Urine Glucose (UA) (Negative) Urine Ketones (Negative) Urine Blood (Negative) Urine Nitrite (Negative) Urine Bilirubin (Negative) Urine Urobilinogen (<2.0) mg/dL Ur Leukocyte Esterase (Negative) Urine RBC (0-5) /hpf Urine WBC Clumps (None) /hpf Urine Bacteria (None) /hpf Urine Mucus (None) /hpf 12/08/18 12/09/18 Range/Units 23:20 00:00 WBC (3.8-10.6) k/uL RBC (3.80-5.40) m/uL Hgb (11.4-16.0) gm/dL Hct (34.0-46.0) % MCV (80.0-100.0) fL MCH (25.0-35.0) pg MCHC (31.0-37.0) g/dL RDW (11.5-15.5) % Plt Count (150-450) k/uL Neutrophils % % Lymphocytes % % Monocytes % % Eosinophils % % Basophils % % Neutrophils # (1.3-7.7) k/uL Lymphocytes # (1.0-4.8) k/uL Monocytes # (0-1.0) k/uL Eosinophils # (0-0.7) k/uL Basophils # (0-0.2) k/uL Sodium (137-145) mmol/L Potassium (3.5-5.1) mmol/L Chloride (98-107) mmol/L Carbon Dioxide (22-30) mmol/L Anion Gap mmol/L BUN (7-17) mg/dL Creatinine (0.52-1.04) mg/dL Est GFR (CKD-EPI)AfAm (>60 ml/min/1.73 sqM) Est GFR (CKD-EPI)NonAf (>60 ml/min/1.73 sqM) Glucose (74-99) mg/dL Plasma Lactic Acid Sammy (0.7-2.0) mmol/L Calcium (8.4-10.2) mg/dL Total Bilirubin (0.2-1.3) mg/dL AST (14-36) U/L ALT (9-52) U/L Alkaline Phosphatase (38-126) U/L Creatine Kinase (30-135) U/L Troponin I <0.012 (0.000-0.034) ng/mL Total Protein (6.3-8.2) g/dL Albumin (3.5-5.0) g/dL Amylase (30-110) U/L Lipase (23-300) U/L Urine Color Yellow Urine Appearance Cloudy H (Clear) Urine pH 5.5 (5.0-8.0) Ur Specific [place] 1.014 (1.001-1.035) Urine Protein 1+ H (Negative) Urine Glucose (UA) Negative (Negative) Urine Ketones Negative (Negative) Urine Blood Small H (Negative) Urine Nitrite Positive H (Negative) Urine Bilirubin Negative (Negative) Urine Urobilinogen <2.0 (<2.0) mg/dL Ur Leukocyte Esterase Large H (Negative) Urine RBC 39 H (0-5) /hpf Urine WBC Clumps Moderate H (None) /hpf Urine Bacteria Occasional H (None) /hpf Urine Mucus Rare H (None) /hpf - Radiology Data Radiology results: report reviewed (I did review the imaging and report evidence of an ileus on x-ray CAT scan does show evidence of some mild hydro-ureter as well as stranding consistent with pyelonephritis no stone is evident), image reviewed Disposition Clinical Impression: Pyelonephritis of right kidney, Febrile illness, acute, Urinary tract infection Disposition: ADMITTED IP TO THIS HOSP Condition: Fair Referrals: Kamar Chris MD [Primary Care Provider] - 1-2 days
[2018-12-09] MEDS ORDERED: NITROGLYCERIN SL TABS 0.4 MG TAB SUBLINGUAL PRN (00:52)
[2018-12-09] MEDS: SODIUM CHLORIDE 0.9% 1,000 ML IV SCH ×2 (01:38→13:25)
[2018-12-09] MEDS ORDERED: ONDANSETRON 4 MG/2 ML VIAL IVP PRN (02:00)
[2018-12-09] MEDS: NON FORMULARY DRUG (Rosuvastatin Calcium [Crestor] 5 MG) PO SCH (05:21)
[2018-12-09] MEDS: LOSARTAN 50 MG TAB PO SCH (08:02)
[2018-12-09] MEDS: hydrALAZINE HCL 25 MG TAB PO SCH ×2 (08:02→23:03)
[2018-12-09] MEDS: PROPAFENONE 150 MG TAB PO SCH ×3 (08:02→23:03)
[2018-12-09] MEDS: ATENOLOL 50 MG TAB PO SCH (08:02)
[2018-12-09] MEDS: ASPIRIN 81 MG PO SCH (08:02)
[2018-12-09] MEDS: CHLORTHALIDONE 25 MG TAB PO SCH (08:02)
[2018-12-09] MEDS: RIVAROXABAN 20 MG TAB PO SCH (08:03)
--- NOTE | 2018-12-09 12:16 | HP ---
HISTORY AND PHYSICAL CHIEF COMPLAINT: Chills, fever and right flank pain. HISTORY OF PRESENT ILLNESS: This is another admission for this 83-year-old white female. The night before she came to the hospital, she woke up with shaking chills and fever and developed right flank and right-sided pain. She came to the emergency room where she was identified as having a pyelonephritis. There is slight dilatation of the ureter as well. REVIEW OF SYSTEMS: She has had no headache, delirium, change in vision or hearing, chest pain, shortness of breath, cough, hemoptysis, palpitations, nausea, vomiting, hematemesis, melena, hematochezia, jaundice, hematuria, incontinence, etc. Past medical history, family history, personal and social histories demonstrate that she cannot take epinephrine, Crestor, statins, or Levaquin. Her current medications include Vicodin p.r.n., Rosuvastatin 5 mg once a day, losartan 50 mg once a day, atenolol 50 mg once a day, hydralazine 25 mg twice a day, chlorthalidone 25 mg once a day, Xarelto 20 mg once a day, propafenone 150 mg t.i.d., Xanax 0.25 t.i.d. p.r.n. Respiratory history is unremarkable. She does not smoke or drink. She has never had infection in the kidney or history of stones. PHYSICAL EXAM: Temperature is 102, and blood pressure is 120/70 with a pulse of 88, respirations. In general, she appeared to be well developed, well nourished, in no acute distress. Skin color is normal, skin is warm, dry. Lymph nodes are not enlarged. Head, ears, eyes, nose, mouth, and throat are normal. Neck veins are not distended. Thyroid is not enlarged. Chest is clear. Cardiac exam is normal, sinus rhythm and no murmurs or extra sounds. Abdomen is soft and a little bit tender in the right side. The right flank is tender. There are no masses. Extremities are normal. Neurologically, she is intact. She is admitted to the hospital with diagnoses: 1. Right-sided pyelonephritis. 2. Hypertension. PLAN: 1. Bed rest. 2. IV fluids. 3. IV antibiotics. MMODL / IJN: [id number] /
[2018-12-10] MEDS: ACETAMINOPHEN TAB 325 MG TAB PO PRN ×2 (01:26→22:50)
[2018-12-10] MEDS: SODIUM CHLORIDE 0.9% 1,000 ML IV SCH ×2 (03:34→16:03)
[2018-12-10] MEDS: CHLORTHALIDONE 25 MG TAB PO SCH (07:43)
[2018-12-10] MEDS: ASPIRIN 81 MG PO SCH (07:43)
[2018-12-10] MEDS: PROPAFENONE 150 MG TAB PO SCH ×3 (07:43→22:48)
[2018-12-10] MEDS: hydrALAZINE HCL 25 MG TAB PO SCH ×2 (07:43→20:35)
[2018-12-10] MEDS: RIVAROXABAN 20 MG TAB PO SCH (07:43)
[2018-12-10] MEDS: LOSARTAN 50 MG TAB PO SCH (07:43)
[2018-12-10] MEDS: ATENOLOL 50 MG TAB PO SCH (07:43)
--- NOTE | 2018-12-10 14:50 | PN ---
PROGRESS NOTE CHIEF COMPLAINT: Right-sided pyelonephritis. HISTORY OF PRESENT ILLNESS: This lady is doing well, but she has had a little bit of chest discomfort. She has had no cough, hemoptysis, pleuritic component, shortness of breath, etc. PHYSICAL EXAMINATION: Her chest is clear. Cardiac exam is normal and the abdomen is soft, nontender. She is not particularly tender in the right upper quadrant or the right flank now. IMPRESSION: 1. Pyelonephritis. 2. Chest pain. PLAN: Continue with current program and probably discharge her tomorrow. We will eventually want to look on her kidney and proximal ureter again because of the possibility of obstruction and hydroureter. MMODL / IJN: [id number] /
[2018-12-10 19:57] VITALS: TEMP 98.3
[2018-12-11] MEDS: NON FORMULARY DRUG (Rosuvastatin Calcium [Crestor] 5 MG) PO SCH (00:26)
[2018-12-11 02:00] VITALS: PULSE 63
[2018-12-11] MEDS: SODIUM CHLORIDE 0.9% 1,000 ML IV SCH (04:58)
[2018-12-11 07:46] VITALS: RESP 17
[2018-12-11 08:03] VITALS: BP 110/65
[2018-12-11] MEDS: hydrALAZINE HCL 25 MG TAB PO SCH (08:50)
[2018-12-11] MEDS: ATENOLOL 50 MG TAB PO SCH (08:50)
[2018-12-11] MEDS: LOSARTAN 50 MG TAB PO SCH (08:50)
[2018-12-11] MEDS: CHLORTHALIDONE 25 MG TAB PO SCH (08:50)
[2018-12-11] MEDS: RIVAROXABAN 20 MG TAB PO SCH (08:50)
[2018-12-11] MEDS: ASPIRIN 81 MG PO SCH (08:50)
[2018-12-11] MEDS: PROPAFENONE 150 MG TAB PO SCH (08:51)
--- NOTE | 2018-12-11 12:01 | DS ---
DISCHARGE SUMMARY CHIEF COMPLAINT: Fever, chills and right flank pain. HISTORY OF PRESENT ILLNESS AND PHYSICAL EXAM: Details of this lady's history and physical can be found in the initial workup. LABORATORY STUDIES: While she was in a hospital she had laboratory studies, details of which can be found in the laboratory section of her chart. COURSE IN THE HOSPITAL: After admission, she was placed on bedrest, started on intravenous fluids and IV antibiotics. Temperature came down. She felt much better. Right flank pain was subsiding rather quickly. She was doing well enough. It was felt that she could go home on the on Bactrim DS twice a day. She will follow up in the office in a day or two. FINAL DIAGNOSES: 1. Right-sided pyelonephritis. 2. Right hydroureter and hydronephrosis. 3. History of hypertension. OPERATIONS: None. CONSULTATIONS: None. She is improved. MMODL / IJN: [id number] /
[2018-12-11] MEDS ORDERED: SULFAMETHOX-TMP 800-160MG 1 EACH TAB PO SCH (21:00)
--- NOTE | 2018-12-19 09:22 | CDI ---
Documentation Clarification Form Date: 12/19/18 From: Regla Garcias Phone: If you have a question about this query, please contact Sanjuanita Dawson [employer] at [phone] between 8am and 5pm. Admit Date: 12/09/18 Discharge Date:12/11/18 Patient Name: Jaye Nowak Visit Number: [id number] ATTENTION: The Clinical Documentation Specialists (CDI) and [facility] Coding Staff appreciate your assistance in clarifying documentation. Please respond to the clarification below the line at the bottom and electronically sign. The CDI & [facility] Coding staff will review the response and follow-up if needed. Please note: Queries are made part of the Legal Health Record. If you have any questions, please contact the author of this message via ITS. Dear Dr. Kamar Chris Atrial Fibrillation is documented in the past medical history of the ED note. History/Risk Factors: Hypertension Clinical Indicators: chest pain EKG/telemetry: Not done Treatment: Xarelto 20 mg po - home med In your professional opinion, can you please clarify the type of Atrial Fibrillation, if known? Chronic Permanent Paroxysmal Chronic persistent Persistent Other, please specify Unable to determine MTDD
--- NOTE | 2018-12-20 15:29 | MISC ---
MISCELLANOUS REPORT Atrial fibrillation is paroxysmal. MMODL / IJN: [id number] /
== END 2018-12-11 11:18 | disposition home or self-care (01) | DRG 690 ==
LOC: EC 22:41 → 4SSUR 12-09 00:53
PROVIDERS: ADMIT Family Medicine; ATTEND Family Medicine
DX: N13.6 Pyonephrosis (principal); I48.0 Paroxysmal atrial fibrillation; R13.10 Dysphagia, unspecified; E78.5 Hyperlipidemia, unspecified; F40.240 Claustrophobia; H35.30 Unspecified macular degeneration; I10 Essential (primary) hypertension; K21.9 Gastro-esophageal reflux disease without esophagitis; F41.9 Anxiety disorder, unspecified; K57.90 Diverticulosis of intestine, part unspecified, without perforation or abscess without bleeding; K64.9 Unspecified hemorrhoids; M19.90 Unspecified osteoarthritis, unspecified site; R07.9 Chest pain, unspecified; Z79.899 Other long term (current) drug therapy; Z79.01 Long term (current) use of anticoagulants; Z79.82 Long term (current) use of aspirin; Z85.828 Personal history of other malignant neoplasm of skin; Z86.73 Personal history of transient ischemic attack (TIA), and cerebral infarction without residual deficits; Z90.710 Acquired absence of both cervix and uterus; Z96.652 Presence of left artificial knee joint; Z88.1 Allergy status to other antibiotic agents; Z88.8 Allergy status to other drugs, medicaments and biological substances; Z90.49 Acquired absence of other specified parts of digestive tract; Z80.0 Family history of malignant neoplasm of digestive organs; Z80.3 Family history of malignant neoplasm of breast; Z82.49 Family history of ischemic heart disease and other diseases of the circulatory system; Z82.3 Family history of stroke
CPT/HCPCS: 36415; 71046; 74018; 74176; 80053; 81001; 82150; 82550; 83605; 83690; 84484; 85025; 87040; 87077; 87086; 87186; 96374; 99285

== ENCOUNTER → 2018-12-25 | Outpatient (CLI) | payer MEDICARE ==
--- NOTE | 2018-12-25 17:01 | US ---
EXAMINATION TYPE: US kidneys/renal and bladder DATE OF EXAM: 12/25/2018 COMPARISON: CLINICAL HISTORY: N13.2 HYDRONEPHROSIS. Hx right side hydronephrosis and renal infection. EXAM MEASUREMENTS: Right Kidney: 8.3 x 4.3 x 3.2 cm Left Kidney: 10.3 x 4.6 x 4.2 cm Right Kidney: Appears small in size. Possible mild hydronephrosis. Lower pole lateral cystic appear ing lesion - 0.8 x 0.7 x 0.6 cm Left Kidney: Possible prominent collecting system seen in renal sinus. Bladder: mildly distended Bilateral Jets not seen No evidence for right-sided hydronephrosis. No nephrolithiasis is seen. No masses are identified. T he urinary bladder is anechoic. Bilateral ureteral jets are seen. IMPRESSION: 1. Diminutive right kidney. 2. Mild fullness left renal collecting system.
== END | disposition home or self-care (01) ==
LOC: RADUSWWP 16:14
PROVIDERS: ATTEND Family Medicine
DX: N39.0 Urinary tract infection, site not specified (principal); Z88.1 Allergy status to other antibiotic agents; Z88.8 Allergy status to other drugs, medicaments and biological substances
CPT/HCPCS: 76770

== ENCOUNTER → 2019-02-04 | Outpatient (CLI) | payer MEDICARE ==
--- NOTE | 2019-02-06 13:55 | MM ---
Reason for exam: screening (asymptomatic). Last mammogram was performed 1 year and 1 month ago. History: Patient is postmenopausal and history of other cancer. Family history of breast cancer in mother at age 67. Physical Findings: A clinical breast exam by your physician is recommended on an annual basis and results should be correlated with mammographic findings. MG 3D Screening Mammo W/Cad Bilateral CC and MLO view(s) were taken. Prior study comparison: December 24, 2017, bilateral MG 3d screening mammo w/cad. December 22, 2016, bilateral MG 3d screening mammo w/cad. There are scattered fibroglandular densities. Finding: There are typically benign round, diffuse/scattered calcifications. No significant changes in finding since December 24, 2017 and December 22, 2016. ASSESSMENT: Benign, BI-RAD 2 RECOMMENDATION: Routine screening mammogram of both breasts in 1 year.
== END | disposition home or self-care (01) ==
LOC: RADMAMWWP 16:21
PROVIDERS: ATTEND Obstetrics & Gynecology
DX: Z12.31 Encounter for screening mammogram for malignant neoplasm of breast (principal); Z80.3 Family history of malignant neoplasm of breast
CPT/HCPCS: 77063; 77067

== ENCOUNTER → 2019-07-25 | Outpatient (CLI) | payer MEDICARE ==
[2019-07-25 17:16] LABS: African American GFR (CKD) 59.9 (60.0-200.0); Anion Gap 9.9 mmol/L (4.00-12.00); Calcium 9.5 mg/dL (8.7-10.3); Carbon Dioxide 31.1 mmol/L (21.6-31.8); Chol/HDL Ratio 2.36; Magnesium 2.3 mg/dL (1.5-2.4); Non-African American GFR(CKD) 51.7 (60.0-200.0); Potassium 3.8 mmol/L (3.5-5.5); T4, Free (Free Thyroxine) 0.9 ng/dL (0.80-1.80)
== END | disposition home or self-care (01) ==
LOC: LABWHC1 08:14
PROVIDERS: ATTEND Nurse Practitioner
DX: E78.2 Mixed hyperlipidemia (principal); Z86.73 Personal history of transient ischemic attack (TIA), and cerebral infarction without residual deficits; R00.2 Palpitations
CPT/HCPCS: 36415; 80048; 80061; 83735; 84439; 84443; 84450; 84460

== ENCOUNTER → 2020-06-25 | Outpatient (CLI) | payer MEDICARE ==
--- NOTE | 2020-06-28 11:32 | MM ---
Reason for exam: screening (asymptomatic). Last mammogram was performed 1 year and 5 months ago. History: Patient is postmenopausal and history of other cancer. Family history of breast cancer in mother at age 67. Physical Findings: A clinical breast exam by your physician is recommended on an annual basis and results should be correlated with mammographic findings. MG 3D Screening Mammo W/Cad Bilateral CC and MLO view(s) were taken. Prior study comparison: February 04, 2019, bilateral MG 3d screening mammo w/cad. December 24, 2017, bilateral MG 3d screening mammo w/cad. There are scattered fibroglandular densities. Stable benign calcifications. There is no discrete abnormality. No significant changes when compared with prior studies. ASSESSMENT: Benign, BI-RAD 2 RECOMMENDATION: Routine screening mammogram of both breasts in 1 year.
== END | disposition home or self-care (01) ==
LOC: RADMAMWWP 09:40
PROVIDERS: ATTEND Obstetrics & Gynecology
DX: Z12.31 Encounter for screening mammogram for malignant neoplasm of breast (principal); Z78.0 Asymptomatic menopausal state; Z80.3 Family history of malignant neoplasm of breast
CPT/HCPCS: 77063; 77067

== ENCOUNTER 2020-10-15 10:15 | Day surgery (SDC) | payer MEDICARE ==
[2020-10-14 11:39] VITALS: BMI 20.5
[~2020-10-15 10:15] MED LIST changes: +LIDOCAINE 1% (10MG/ML) FOR IV START INTRADERMA PRN; -LIDOCAINE 1% 20 ML VIAL (10MG/ML) FOR IV START INTRADERMA PRN
[2020-10-15 10:58] VITALS: RESP 16; TEMP 97.6
[2020-10-15] MEDS ORDERED: PROPOFOL 10 MG/ML 20 ML VIAL IV ONE (12:19)
[2020-10-15] MEDS ORDERED: LIDOCAINE 1% INJ 10MG/ML (20 ML MDV) ONE (12:19)
--- NOTE | 2020-10-15 12:38 | P.PCN ---
Date of Procedure: 10/15/20 Procedure(s) Performed: BRIEF HISTORY: Patient is a 85-year-old, pleasant, female scheduled for an upper endoscopy as a part of evaluation of intermittent dysphagia to solids. She has history of Angela fundoplication 2013 and since then has been having intermittent dysphagia to solids. She had last upper endoscopy in 2017 with empiric dilation performed. PROCEDURE PERFORMED: Esophagogastroduodenoscopy with dilation. PREOPERATIVE DIAGNOSIS: Intermittent dysphagia to solids. IV sedation per anesthesia. PROCEDURE: After informed consent was obtained, the patient was brought into the endoscopy unit. IV sedation was administered by Anesthesia under continuous monitoring. Initially the Olympus GIF-140 video endoscope was inserted into the mouth. Esophagus intubated without any difficulty. It was gradually advanced into the stomach and duodenum and carefully examined. The bulb and the second p art of the duodenum appeared normal. The scope at this time was withdrawn to the stomach, adequately insufflated with air, and upon careful examination, mucosa of the antrum, body, cardia and the fundus appeared normal. The scope was then withdrawn into the esophagus. Small hiatal hernia noted. The GE junction was located at 39 cm from the incisors. It appeared slightly tortuous and there was early distal esophageal stricture identified that was dilated using 15 mm TTS balloon for 30 seconds. The rest of the esophagus appeared normal. There were no erosions or ulcerations seen and the patient tolerated the procedure well. IMPRESSION: 1. Distal esophageal stricture status post balloon dilation using 15 mm TTS balloon as described above. 2. Tortous distal esophagus probably related from postoperative changes from Angela fundoplication. RECOMMENDATIONS: The findings of this examination were discussed with the patient as well as a family. She will remain on a clear liquid diet for lunch today. Resume Xarelto tomorrow. Follow up in office if she has any symptoms of dysphagia.
[2020-10-15 12:53] VITALS: BP 100/56; PULSE 58
== END 2020-10-15 13:07 | disposition home or self-care (01) ==
LOC: ORWHC2ENDO 10:15
PROVIDERS: ATTEND Internal Medicine Gastroenterology
DX: K22.2 Esophageal obstruction (principal); I10 Essential (primary) hypertension; E78.5 Hyperlipidemia, unspecified; I25.10 Atherosclerotic heart disease of native coronary artery without angina pectoris; I48.91 Unspecified atrial fibrillation; Z79.01 Long term (current) use of anticoagulants; K21.9 Gastro-esophageal reflux disease without esophagitis; Z79.899 Other long term (current) drug therapy; Z88.8 Allergy status to other drugs, medicaments and biological substances
CPT/HCPCS: 43249; J2001; J2704; C1726

== ENCOUNTER 2020-12-25 15:08 | Observation (INO) | payer MEDICARE ==
--- NOTE | 2020-12-25 15:21 | ED ---
General Adult HPI - General Chief complaint: Arrhythmia/Palpitations Stated complaint: A fib RVR Time Seen by Provider: 12/25/20 15:16 Source: patient, EMS Mode of arrival: EMS Limitations: no limitations - History of Present Illness Initial comments: Patient presents to the ED by ambulance for evaluation with her at bedside. Patient states that she was walking in the mall this afternoon when she developed rapid heart palpitations and mild chest pressure. Patient states that her symptoms persisted, so she called her primary care provider's office, and she was instructed to come to the ER. Patient states that her symptoms have improved, but are still persistent. Patient was given 4 baby aspirin by EMS. Patient states that she has a history of atrial fibrillation, and she states that she is currently anticoagulated with Xarelto. Patient also admits to feeling mildly lightheaded prior to coming to the hospital, but she denies feel ing lightheaded or dizzy currently. Patient denies fever or chills, headache, focal numbness/weakness/neuro deficit, neck/arm/jaw pain, pleuritic pain, dyspnea, cough or cold symptoms, syncope, abdominal pain, nausea/vomiting/diarrhea, dysuria or urinary symptoms, leg or calf swelling or pain, or any other symptoms or complaints. - Related Data Home Medications Medication Instructions Recorded Confirmed Nitroglycerin Sl Tabs [Nitrostat] 0.4 mg SUBLINGUAL Q5M PRN 09/10/14 12/25/20 Rivaroxaban [Xarelto] 20 mg PO DAILY 10/18/14 12/25/20 Atenolol [Tenormin] 50 mg PO DAILY 12/29/16 12/25/20 Propafenone [Rythmol] 75 mg PO Q8HR 05/10/17 12/25/20 Chlorthalidone 25 mg PO DAILY 12/11/17 12/25/20 hydrALAZINE HCL [Apresoline] 25 mg PO BID 12/11/17 12/25/20 Rosuvastatin Calcium [Crestor] 5 mg PO HS 12/08/18 12/25/20 Dicyclomine [Bentyl] 10 mg PO DAILY PRN 10/14/20 12/25/20 Diphenox-Atrop 2.5-0.025 mg 1 tab PO QID PRN 10/14/20 12/25/20 [Lomotil] Losartan Potassium 50 mg PO DAILY 12/25/20 12/25/20 Omeprazole 40 mg PO DAILY 12/25/20 12/25/20 Allergies Allergy/AdvReac Type Severity Reaction Status Date / Time atorvastatin calcium Allergy Abdominal Verified 12/25/20 16:31 [From Lipitor] Pain epinephrine Allergy Rapid Verified 12/25/20 16:31 Heart Rate levofloxacin [From Levaquin] Allergy Unknown Verified 12/25/20 16:31 Vprrebe-Pcc-Dam Reductase Allergy SEVERE Verified 12/25/20 16:31 Inhibitor MUSCLE PAIN Review of Systems ROS Statement: Those systems with pertinent positive or pertinent negative responses have been documented in the HPI. ROS Other: All systems not noted in ROS Statement are negative. Past Medical History Past Medical History: Atrial Fibrillation, Cancer, Chest Pain / Angina, CVA/TIA, Eye Disorder, GERD/Reflux, Hyperlipidemia, Hypertension, Vascular Disorder Additional Past Medical History / Comment(s): MACULAR DEGENERATION GISELLE EYES, DIVERTICULOSIS, ANEMIA, BASAL CELL SKIN CA, CVA 2013-NO RESIDUAL EFFECTS., DYS PHAGIA - STATES CURRENTLY FOOD FEELS LIKE IT IS GETTING STUCK.VOMITING AT TIMES WITH EATING , STATES AFTER EATING SHE HAS BLOATING, GAS AND DIARRHEA., CLAUSTROPHOBIC, VERICOSE VEINS. History of Any Multi-Drug Resistant Organisms: None Reported Past Surgical History: Appendectomy, Cholecystectomy, Heart Catheterization, Hernia Repair, Hysterectomy, Joint Replacement, Orthopedic Surgery Additional Past Surgical History / Comment(s): LASER VEIN SURGERY,GISELLE CATARACT. RT KNEE ARTHROSCOPY, LT KNEE REPLACEMENT, EGD WITH DILATION., COLONOSCOPY, DIONISIO FUDOPLASTY (2013) . Past Anesthesia/Blood Transfusion Reactions: No Reported Reaction Additional Past Anesthesia/Blood Transfusion Reaction / Comment(s): claustrophobic Past Psychological History: Anxiety Smoking Status: Never smoker - Past Family History Brother(s) Family Medical History: CVA/TIA, Myocardial Infarction ([place]) Mother Family Medical History: Cancer, Deep Vein Thrombosis (DVT) Additional Family Medical History / Comment(s): BREAST CANCER Father Family Medical History: Cancer Additional Family Medical History / Comment(s): PANCREATIC CANCER General Exam Limitations: no limitations General appearance: alert, in no apparent distress Head exam: Present: atraumatic, normocephalic Eye exam: Present: normal appearance, EOMI ENT exam: Present: mucous membranes moist Neck exam: Present: other (Trachea is in midline) Respiratory exam: Present: normal lung sounds bilaterally. Absent: respiratory distress, wheezes, rales, rhonchi, stridor Cardiovascular Exam: Present: tachycardia, irregular rhythm, normal heart sounds, other (Normal radial pulses bilaterally) GI/Abdominal exam: Present: soft. Absent: distended, tenderness, guarding Extremities exam: Present: other (Negative Homans sign bilaterally). Absent: tenderness, pedal edema, calf tenderness Neurological exam: Present: alert, oriented X3. Absent: motor sensory deficit Psychiatric exam: Present: normal affect, normal mood Skin exam: Present: warm, dry, intact, normal color Course Vital Signs 12/25/20 12/25/20 12/25/20 15:14 15:19 15:30 Temperature 97.6 F Pulse Rate 64 138 H Respiratory 16 15 Rate Blood Pressure 134/71 134/71 O2 Sat by Pulse 96 95 Oximetry 12/25/20 16:00 Temperature Pulse Rate 105 H Respiratory 16 Rate Blood Pressure 97/53 O2 Sat by Pulse 95 Oximetry - Reevaluation(s) Reevaluation #1: 12/25/20 16:35 Case, H&P, test results and ED/EMS management were discussed with Dr. Chris. He accepts hospital admission. He agrees with cardiology consultation. He has no further recommendations at this time. 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 Patient's heart rate has now improved to the 80s to 100s. Patient remains alert and breathing comfortably. Patient denies development of any new symptoms while in the ED. Patient and family are aware the patient's test results and my discussion with Dr. Chris as above. They all agree with hospital admission at this time. EKG Findings - EKG Comments: EKG Findings:: Atrial fibrillation with rapid ventricular response, ventricular rate of 118 bpm, QRS duration, normal QT interval, nonspecific ST abnormality Medical Decision Making - Medical Decision Making Patient's labs are fairly unremarkable. Patient's troponin is negative. Patient was given aspirin by EMS. Patient was given a dose of IV diltiazem in [facility] ED with improvement in her heart rate. Will admit the patient to the hospital for further evaluation and management, as well as cardiology consultation. Dr. Chris has accepted hospital admission. - Lab Data Result diagrams: 12/25/20 15:30 12/25/20 15:30 Lab Results 12/25/20 12/25/20 12/25/20 Range/Units 15:30 15:30 15:30 WBC 4.9 (3.8-10.6) k/uL RBC 3.74 L (3.80-5.40) m/uL Hgb 12.1 (11.4-16.0) gm/dL Hct 36.5 (34.0-46.0) % MCV 97.7 (80.0-100.0) fL MCH 32.3 (25.0-35.0) pg MCHC 33.1 (31.0-37.0) g/dL RDW 12.8 (11.5-15.5) % Plt Count 248 (150-450) k/uL MPV 7.8 Neutrophils % 57 % Lymphocytes % 26 % Monocytes % 7 % Eosinophils % 6 % Basophils % 1 % Neutrophils # 2.8 (1.3-7.7) k/uL Lymphocytes # 1.3 (1.0-4.8) k/uL Monocytes # 0.3 (0-1.0) k/uL Eosinophils # 0.3 (0-0.7) k/uL Basophils # 0.0 (0-0.2) k/uL PT 15.3 H (9.0-12.0) sec INR 1.5 H (<1.2) APTT 36.9 H (22.0-30.0) sec Sodium 138 (137-145) mmol/L Potassium 3.3 L (3.5-5.1) mmol/L Chloride 102 (98-107) mmol/L Carbon Dioxide 27 (22-30) mmol/L Anion Gap 9 mmol/L BUN 25 H (7-17) mg/dL Creatinine 0.74 (0.52-1.04) mg/dL Est GFR (CKD-EPI)AfAm 86 (>60 ml/min/1.73 sqM) Est GFR (CKD-EPI)NonAf 75 (>60 ml/min/1.73 sqM) Glucose 101 H (74-99) mg/dL Calcium 8.8 (8.4-10.2) mg/dL Magnesium 2.2 (1.6-2.3) mg/dL Total Bilirubin 0.5 (0.2-1.3) mg/dL AST 26 (14-36) U/L ALT 15 (4-34) U/L Alkaline Phosphatase 77 (38-126) U/L Troponin I (0.000-0.034) ng/mL NT-Pro-B Natriuret Pep pg/mL Total Protein 6.4 (6.3-8.2) g/dL Albumin 3.7 (3.5-5.0) g/dL 12/25/20 12/25/20 Range/Units 15:30 15:30 WBC (3.8-10.6) k/uL RBC (3.80-5.40) m/uL Hgb (11.4-16.0) gm/dL Hct (34.0-46.0) % MCV (80.0-100.0) fL MCH (25.0-35.0) pg MCHC (31.0-37.0) g/dL RDW (11.5-15.5) % Plt Count (150-450) k/uL MPV Neutrophils % % Lymphocytes % % Monocytes % % Eosinophils % % Basophils % % Neutrophils # (1.3-7.7) k/uL Lymphocytes # (1.0-4.8) k/uL Monocytes # (0-1.0) k/uL Eosinophils # (0-0.7) k/uL Basophils # (0-0.2) k/uL PT (9.0-12.0) sec INR (<1.2) APTT (22.0-30.0) sec Sodium (137-145) mmol/L Potassium (3.5-5.1) mmol/L Chloride (98-107) mmol/L Carbon Dioxide (22-30) mmol/L Anion Gap mmol/L BUN (7-17) mg/dL Creatinine (0.52-1.04) mg/dL Est GFR (CKD-EPI)AfAm (>60 ml/min/1.73 sqM) Est GFR (CKD-EPI)NonAf (>60 ml/min/1.73 sqM) Glucose (74-99) mg/dL Calcium (8.4-10.2) mg/dL Magnesium (1.6-2.3) mg/dL Total Bilirubin (0.2-1.3) mg/dL AST (14-36) U/L ALT (4-34) U/L Alkaline Phosphatase (38-126) U/L Troponin I <0.012 (0.000-0.034) ng/mL NT-Pro-B Natriuret Pep 1210 pg/mL Total Protein (6.3-8.2) g/dL Albumin (3.5-5.0) g/dL - Radiology Data Radiology results: report reviewed (Chest x-ray: Normal pleural reaction left lung base. Normal heart. No adverse change.) Disposition Clinical Impression: Atrial fibrillation with rapid ventricular response Disposition: ADMITTED IP TO THIS HOSP Condition: Stable Is patient prescribed a controlled substance at d/c from ED?: No Referrals: Kamar Chris MD [Primary Care Provider] - 1-2 days Time of Disposition: 16:35
[2020-12-25] MEDS ORDERED: DILTIAZEM DRIP BOLUS FROM BAG 1 MG SOLN IV ONE (15:25)
[2020-12-25 15:36] LABS: Basophils % (A) 1 %; Eosinophils # (A) 0.3 k/uL (0-0.7); Eosinophils % (A) 6 %; HCT 36.5 % (34.0-46.0); HGB 12.1 gm/dL (11.4-16.0); Lymphocytes # (A) 1.3 k/uL (1.0-4.8); Lymphocytes % (A) 26 %; MCH 32.3 pg (25.0-35.0); MCHC 33.1 g/dL (31.0-37.0); MCV 97.7 fL (80.0-100.0); Mean Platelet Volume 7.8; Monocytes # (A) 0.3 k/uL (0-1.0); Monocytes % (A) 7 %; Neutrophils # (A) 2.8 k/uL (1.3-7.7); Neutrophils % (A) 57 %; Platelet Count 248 k/uL (150-450); RBC 3.74 m/uL (3.80-5.40); RDW 12.8 % (11.5-15.5); WBC 4.9 k/uL (3.8-10.6)
--- NOTE | 2020-12-25 15:45 | XR ---
EXAMINATION TYPE: XR chest 1V portable DATE OF EXAM: 12/25/2020 COMPARISON: 12/08/2018 HISTORY: Dysrhythmia TECHNIQUE: Single view FINDINGS: There is slight blunting left costophrenic angle. Heart size is normal. Thoracic aorta is a theromatous. There are no hilar masses. IMPRESSION: Normal pleural reaction left lung base. Normal heart. No adverse change.
[2020-12-25 15:50] LABS: INR 1.5 (<1.2); Partial Thromboplastin Time 36.9 sec (22.0-30.0); Prothrombin Time 15.3 sec (9.0-12.0)
[2020-12-25 15:51] LABS: Albumin 3.7 g/dL (3.5-5.0); Calcium 8.8 mg/dL (8.4-10.2); Magnesium 2.2 mg/dL (1.6-2.3); Potassium 3.3 mmol/L (3.5-5.1); Total Bilirubin 0.5 mg/dL (0.2-1.3); Total Protein 6.4 g/dL (6.3-8.2)
[2020-12-25] MEDS ORDERED: DILTIAZEM 5 MG/ML 5 ML VIAL IV ONE (16:00)
[2020-12-25] MEDS: hydrALAZINE HCL 25 MG TAB PO SCH (20:03)
[2020-12-25] MEDS ORDERED: NON FORMULARY DRUG (Rosuvastatin Calcium [Crestor] 5 MG Tablet) PO SCH (21:00)
[2020-12-25] MEDS: PROPAFENONE 150 MG TAB PO SCH (23:20)
[2020-12-26] MEDS: POTASSIUM CHLORIDE ER 10 MEQ TAB.ER.PRT PO SCH ×2 (00:21→10:03)
[2020-12-26 07:55] VITALS: BP 122/65; PULSE 62; RESP 16; TEMP 97.7
[2020-12-26] MEDS ORDERED: CHLORTHALIDONE 25 MG TAB PO SCH (09:00)
[2020-12-26] MEDS ORDERED: LOSARTAN 50 MG TAB PO SCH (09:00)
[2020-12-26] MEDS ORDERED: atenoloL 50 MG TAB PO SCH (09:00)
[2020-12-26] MEDS: PROPAFENONE 150 MG TAB PO SCH (10:02)
[2020-12-26] MEDS: hydrALAZINE HCL 25 MG TAB PO SCH (10:03)
--- NOTE | 2020-12-26 10:04 | P.CRDCN ---
History of Present Illness History of present illness: HISTORY OF PRESENTING ILLNESS This is a pleasant 85-year-old with past medical history significant for paroxysmal atrial fibrillation/atrial flutter, hypertension, previous stroke, mild coronary artery disease by heart catheterization 2014 who presents secondary to episode of palpitations and feeling somewhat lightheaded. Patient as she was walking the mall when she started feeling her heart racing and felt somewhat short of breath and lightheaded. She also admits to a feeling of pre ssure which felt similar to prior A. fib episode however her last A. fib episode was approximately 6 or 7 years ago. She admits she had been feeling fairly well and has done fairly well with her A. fib. Her last heart catheterization was from 2014 and personally revealed with no significant disease other than mild 20% disease of the LAD. She was placed on home medications and has converted to normal sinus rhythm with very brief runs of 5-10 beats of atrial fibrillation. Denies any current chest pain or pressure has been walking the halls without any difficulty. She admits normally her blood pressures very well controlled usually in the 100 110 systolic range. Her blood pressures at been borderline in the 90-110 since being admitted. She was also noted to be mildly hypokalemic 3.3. Troponin noted to be less than 0.012, 0.018, 0.033. EKG shows atrial fibrillation with a specific minimal ST depression. REVIEW OF SYSTEMS At the time of my exam: CONSTITUTIONAL: Denies fever or chills. CARDIOVASCULAR: Denies chest pain, +shortness of breath, no orthopnea, PND or palpitations. RESPIRATORY: Denies cough. GASTROINTESTINAL: Denies abdominal pain, diarrhea, constipation, nausea or vomiting. MUSCULOSKELETAL: Denies myalgias. NEUROLOGIC: Denies numbness, tingling or weakness. ENDOCRINE: Denies fatigue, weight change, polydipsia or polyurina. GENITOURINARY: Denies burning, hematuria or urgency with micturation. HEMATOLOGIC: Denies history of anemia or bleeding. PHYSICAL EXAMINATION Vital signs reviewed. CONSTITUTIONAL: No apparent distress. HEENT: Head is normocephalic. Pupils are equal, round. Sclerae anicteric. Mucous membranes of the mouth are moist. No JVD. No carotid bruit. CHEST EXAMINATION: Lungs are clear to auscultation. No chest wall tenderness is noted on palpation or with deep breathing. HEART EXAMINATION: Regular rate and rhythm. S1, S2 heard. No murmurs, gallops or rub. ABDOMEN: Soft, nontender. Positive bowel sounds. EXTREMITIES: 2+ peripheral pulses, no lower extremity edema and no calf tenderness. NEUROLOGIC EXAMINATION: Patient is awake, alert and oriented x3. ASSESSMENT 1. Paroxysmal atrial fibrillation with RVR, currently sinus rhythm 2. Chest pressure, shortness breath which appears related to A. fib with RVR. Similar to prior episode 2015 with only minimal CAD noted on cath 3. History of stroke 4. Hypertension, borderline blood pressures 5. Hypokalemia 6. sinus bradycardia PLAN Patient overall is feeling much better today and appears that her main episode was related to A. fib with RVR. Continue with home dose of atenolol as since she has converted her rate is in the 50s. Continue with home Rythmol. The chest pressure is likely related to her A. fib with RVR episode and she had similar episode in 2015 with workup showing only minimal CAD. Do not suspect acute coronary syndrome. Check repeat troponin to ensure this has leveled off. Blood pressures have been borderline and therefore we will stop chlorthalidone as she has been feeling lightheaded with these episodes and additionally her potassium was noted to be low. If patient remains stable with troponin normal patient may be discharged on home atenolol and Rythmol however would discontinue chlorthalidone on discharge. Follow-up with Dr. Rodrigues in 1 week. Past Medical History Past Medical History: Atrial Fibrillation, Cancer, Chest Pain / Angina, CVA/TIA, Eye Disorder, GERD/Reflux, Hyperlipidemia, Hypertension, Vascular Disorder Additional Past Medical History / Comment(s): MACULAR DEGENERATION GISELLE EYES, DIVERTICULOSIS, ANEMIA, BASAL CELL SKIN CA, CVA 2013-NO RESIDUAL EFFECTS., DYSPHAGIA - STATES CURRENTLY FOOD FEELS LIKE IT IS GETTING STUCK.VOMITING AT TIMES WITH EATING , STATES AFTER EATING SHE HAS BLOATING, GAS AND DIARRHEA., CLAUSTROPHOBIC, VERICOSE VEINS. History of Any Multi-Drug Resistant Organisms: None Reported Past Surgical History: Appendectomy, Cholecystectomy, Heart Catheterization, Hernia Repair, Hysterectomy, Joint Replacement, Orthopedic Surgery Additional Past Surgical History / Comment(s): LASER VEIN SURGERY,GISELLE CATARACT. RT KNEE ARTHROSCOPY, LT KNEE REPLACEMENT, EGD WITH DILATION., COLONOSCOPY, DIONISIO FUDOPLASTY (2013) . Past Anesthesia/Blood Transfusion Reactions: No Reported Reaction Additional Past Anesthesia/Blood Transfusion Reaction / Comment(s): claustrophobic Past Psychological History: Anxiety Additional Psychological History / Comment(s): . Smoking Status: Never smoker Past Alcohol Use History: Rare Past Drug Use History: None Reported - Past Family History Brother(s) Family Medical History: CVA/TIA, Myocardial Infarction ([place]) Mother Family Medical History: Cancer, Deep Vein Thrombosis (DVT) Additional Family Medical History / Comment(s): BREAST CANCER Father Family Medical History: Cancer Additional Family Medical History / Comment(s): PANCREATIC CANCER Medications and Allergies Home Medications Medication Instructions Recorded Confirmed Type Nitroglycerin Sl Tabs [Nitrostat] 0.4 mg SUBLINGUAL Q5M PRN 09/10/14 12/25/20 History Rivaroxaban [Xarelto] 20 mg PO DAILY 10/18/14 12/25/20 History Atenolol [Tenormin] 50 mg PO DAILY 12/29/16 12/25/20 History Propafenone [Rythmol] 75 mg PO Q8HR 05/10/17 12/25/20 History Chlorthalidone 25 mg PO DAILY 12/11/17 12/25/20 History hydrALAZINE HCL [Apresoline] 25 mg PO BID 12/11/17 12/25/20 History Rosuvastatin Calcium [Crestor] 5 mg PO HS 12/08/18 12/25/20 History Dicyclomine [Bentyl] 10 mg PO DAILY PRN 10/14/20 12/25/20 History Diphenox-Atrop 2.5-0.025 mg 1 tab PO QID PRN 10/14/20 12/25/20 History [Lomotil] Losartan Potassium 50 mg PO DAILY 12/25/20 12/25/20 History Omeprazole 40 mg PO DAILY 12/25/20 12/25/20 History Allergies Allergy/AdvReac Type Severity Reaction Status Date / Time atorvastatin calcium Allergy Abdominal Verified 12/25/20 16:31 [From Lipitor] Pain epinephrine Allergy Rapid Verified 12/25/20 16:31 Heart Rate levofloxacin [From Levaquin] Allergy Unknown Verified 12/25/20 16:31 Wlvmacc-Moy-Oqf Reductase Allergy SEVERE Verified 12/25/20 16:31 Inhibitor MUSCLE PAIN Physical Exam Vitals: Vital Signs Temp Pulse Pulse Resp BP BP Pulse Ox 12/26/20 07:00 97.7 F 62 16 122/65 96 12/26/20 02:10 98.1 F 44 L 18 104/48 98 12/25/20 19:40 97.5 F L 54 L 18 103/59 96 12/25/20 19:16 98.6 F 12/25/20 18:00 98.2 F 51 L 15 108/62 96 12/25/20 17:30 52 L 16 108/61 96 12/25/20 17:00 97 18 98/63 97 12/25/20 16:30 81 16 90/55 97 12/25/20 16:00 105 H 16 97/53 95 12/25/20 15:30 138 H 15 134/71 95 12/25/20 15:19 97.6 F 12/25/20 15:14 64 16 134/71 96 Intake and Output 12/25/20 12/26/20 12/26/20 23:59 06:59 14:59 Output Total Balance Output: Emesis Other: Weight Results 12/25/20 15:30 12/25/20 15:30 Cardiac Enzymes 12/25/20 12/25/20 12/25/20 Range/Units 15:30 15:30 18:50 AST 26 (14-36) U/L Troponin I <0.012 0.018 (0.000-0.034) ng/mL 12/25/20 Range/Units 22:12 AST (14-36) U/L Troponin I 0.033 (0.000-0.034) ng/mL Coagulation 12/25/20 Range/Units 15:30 PT 15.3 H (9.0-12.0) sec APTT 36.9 H (22.0-30.0) sec CBC 12/25/20 Range/Units 15:30 WBC 4.9 (3.8-10.6) k/uL RBC 3.74 L (3.80-5.40) m/uL Hgb 12.1 (11.4-16.0) gm/dL Hct 36.5 (34.0-46.0) % Plt Count 248 (150-450) k/uL Comprehensive Metabolic Panel 12/25/20 Range/Units 15:30 Sodium 138 (137-145) mmol/L Potassium 3.3 L (3.5-5.1) mmol/L Chloride 102 (98-107) mmol/L Carbon Dioxide 27 (22-30) mmol/L BUN 25 H (7-17) mg/dL Creatinine 0.74 (0.52-1.04) mg/dL Glucose 101 H (74-99) mg/dL Calcium 8.8 (8.4-10.2) mg/dL AST 26 (14-36) U/L ALT 15 (4-34) U/L Alkaline Phosphatase 77 (38-126) U/L Total Protein 6.4 (6.3-8.2) g/dL Albumin 3.7 (3.5-5.0) g/dL Current Medications Generic Name Dose Route Start Last Admin Trade Name Freq PRN Reason Stop Dose Admin Atenolol 50 mg 12/26/20 09:00 Atenolol 50 Mg Tab PO DAILY [facility] Hydralazine HCl 25 mg 12/25/20 21:00 12/25/20 20:03 Hydralazine Hcl 25 Mg Tab PO Not Given BID [facility] Losartan Potassium 50 mg 12/26/20 09:00 Losartan 50 Mg Tab PO DAILY [facility] Non-Formulary Medication 5 mg 12/25/20 21:00 12/25/20 20:04 Rosuvastatin Calcium [Crestor] PO Not Given HS [facility] Potassium Chloride 10 meq 12/25/20 23:45 12/26/20 00:21 Potassium Chloride Er 10 Meq Tab.Er.Prt PO 10 meq TID NAYAN Administration Propafenone HCl 75 mg 12/26/20 00:00 12/25/20 23:20 Propafenone 150 Mg Tab PO 75 mg Q8HR [facility] Administration Rivaroxaban 20 mg 12/26/20 17:00 Rivaroxaban 20 Mg Tab PO DAILY@1700 [facility] Protocol Intake and Output 12/25/20 12/26/20 12/26/20 23:59 06:59 14:59 Output Total Balance Output: Emesis Other: Weight 12/25/20 15:30 12/25/20 15:30
[2020-12-26] MEDS ORDERED: SODIUM CHLORIDE 0.9% 500 ML 250 ML IV ONE (10:06)
[2020-12-26 10:16] LABS: Basophils # (A) 0.04 X 10*3/uL (0.00-0.10); Eosinophils % (A) 7.4 %; HGB 11.1 g/dL (12.0-15.0); Lymphocytes # (A) 1.24 X 10*3/uL (0.90-5.00); Lymphocytes % (A) 30.4 %; MCH 31.1 pg (27.0-32.0); MCHC 31.7 g/dL (32.0-37.0); Mean Platelet Volume 10.9 fL (9.5-12.2); Monocytes # (A) 0.51 X 10*3/uL (0.20-1.00); Monocytes % (A) 12.5 %; Neutrophils # (A) 1.98 X 10*3/uL (1.80-7.70); Neutrophils % (A) 48.5 %; Platelet Count 222 X 10*3/uL (140-440); RBC 3.57 X 10*6/uL (4.10-5.20); RDW 13.9 % (11.5-14.5); WBC 4.08 X 10*3/uL (4.50-10.00)
[2020-12-26 10:49] LABS: African American GFR (CKD) 77.9 (60.0-200.0); Albumin 3.4 g/dL (3.8-4.9); Albumin/Globulin Ratio 1.7 (1.60-3.17); Anion Gap 10.5 mmol/L (4.00-12.00); BUN/Creat Ratio 23.25 Ratio (12.00-20.00); Blood Urea Nitrogen 18.6 mg/dL (9.0-27.0); Calcium 8.8 mg/dL (8.7-10.3); Carbon Dioxide 28.5 mmol/L (21.6-31.8); Non-African American GFR(CKD) 67.2 (60.0-200.0); Potassium 3.5 mmol/L (3.5-5.5); Total Bilirubin 0.4 mg/dL (0.30-1.20); Total Protein 5.4 g/dL (6.2-8.2)
[2020-12-26] MEDS ORDERED: RIVAROXABAN 20 MG TAB PO SCH (17:00)
--- NOTE | 2020-12-27 18:28 | HP ---
HISTORY AND PHYSICAL DATE OF ADMISSION: 12/25/2020 CHIEF COMPLAINT: Shortness of breath, dizziness and chest tightness. HISTORY OF PRESENT ILLNESS: This is another admission for this lady who has a history of hypertension, coronary artery disease and atrial fibrillation. She has been well controlled under medications of late. She was taking a walk with her when she began to notice that she felt short of breath and had heaviness in the chest. She had no diaphoresis, radiation of the pain, etc. She did not pass out. They decided that they should go home. She continued to have difficulty and he summoned an ambulance. She came to the emergency room, where she was found to be in atrial fibrillation with a rapid ventricular response rate of around 150 beats per minute. REVIEW OF SYSTEMS: She had no neurologic problems, nausea, abdominal pain, diarrhea, etc. Past medical history, family history, and personal and social histories are otherwise unremarkable and noncontributory. PHYSICAL EXAMINATION: Blood pressure is 140/92 with a pulse of 150 and irregularly irregular. Respirations were 38. In general she appeared to be slightly pale and in some mild distress. Head, ears, eyes, nose, mouth and throat were normal. Neck veins were not distended. Thyroid was not enlarged. Chest was clear. Cardiac exam was normal except for her atrial fibrillation. Abdomen was soft and nontender. Extremities were normal. Neurologically she is intact. IMPRESSION: 1. Atrial fibrillation with rapid ventricular response. 2. History of coronary artery disease. 3. History of hypertension. 4. History of previous cerebrovascular accident. PLAN: 1. Bedrest. 2. IV fluids. 3. Serial EKGs and enzymes. 4. Control heart rate and rhythm. MMODL / IJN: [id number] /
--- NOTE | 2020-12-27 19:27 | DS ---
DISCHARGE SUMMARY DATE OF DISCHARGE: 12/26/2020 CHIEF COMPLAINT: Atrial fibrillation. HISTORY OF PRESENT ILLNESS AND PHYSICAL EXAMINATION: Details of this lady's history and physical can be found in the initial workup. LABORATORY STUDIES: While she was in the hospital, she had laboratory studies, details of which can be found in the laboratory section of her chart. COURSE IN THE HOSPITAL: After admission she was placed on bedrest, started on intravenous fluids, and she had serial EKGs and enzymes. She was seen by Cardiology. Her potassium was slightly low and decision was made to take her off of her diuretic. She did well, was in sinus rhythm, and it was felt that she could be discharged on December 26. Her flecainide will also be reduced to half of her usual dose. She will follow up in the office in a day or two. FINAL DIAGNOSES: 1. Atrial fibrillation with rapid ventricular response. 2. History of coronary artery disease. 3. History of previous cerebrovascular accident. 4. History of hypertension. OPERATIONS: None. CONSULTATION: Cardiology. She is improved. MMODL / IJN: [id number] /
== END 2020-12-26 13:46 | disposition home or self-care (01) ==
LOC: EC 15:08 → 6NMEDSUR 16:40
PROVIDERS: ADMIT Family Medicine; ATTEND Family Medicine
DX: I48.0 Paroxysmal atrial fibrillation (principal); I25.10 Atherosclerotic heart disease of native coronary artery without angina pectoris; Z86.73 Personal history of transient ischemic attack (TIA), and cerebral infarction without residual deficits; I10 Essential (primary) hypertension; K21.9 Gastro-esophageal reflux disease without esophagitis; E78.5 Hyperlipidemia, unspecified; D64.9 Anemia, unspecified; H35.30 Unspecified macular degeneration; K57.90 Diverticulosis of intestine, part unspecified, without perforation or abscess without bleeding; R13.10 Dysphagia, unspecified; I83.90 Asymptomatic varicose veins of unspecified lower extremity; F40.240 Claustrophobia; F41.9 Anxiety disorder, unspecified; I48.92 Unspecified atrial flutter; E87.6 Hypokalemia; R00.1 Bradycardia, unspecified; Z20.822 Contact with and (suspected) exposure to COVID-19; Z79.899 Other long term (current) drug therapy; Z79.01 Long term (current) use of anticoagulants; Z88.8 Allergy status to other drugs, medicaments and biological substances; Z88.1 Allergy status to other antibiotic agents; Z85.828 Personal history of other malignant neoplasm of skin; Z98.890 Other specified postprocedural states; Z96.652 Presence of left artificial knee joint; Z90.49 Acquired absence of other specified parts of digestive tract; Z90.710 Acquired absence of both cervix and uterus; Z82.49 Family history of ischemic heart disease and other diseases of the circulatory system; Z82.3 Family history of stroke; Z80.3 Family history of malignant neoplasm of breast; Z80.0 Family history of malignant neoplasm of digestive organs
CPT/HCPCS: 96374; 99285; 36415; 93005; 83880; 80053 ×2; 83735; 84484 ×2; 85025 ×2; 85610; 85730; 87635; 71045; G0378 ×2

== ENCOUNTER 2021-01-07 21:40 | Inpatient (IN) | payer MEDICARE ==
[2021-01-07] MEDS ORDERED: SODIUM CHLORIDE 0.9% 500 ML 500 ML IV STA (22:12)
[2021-01-07] MEDS ORDERED: DILTIAZEM DRIP BOLUS FROM BAG 1 MG SOLN IV ONE (22:13)
[2021-01-07] MEDS ORDERED: DILTIAZEM 125 MG in SODIUM CHLORIDE 0.9% 100 ML IV SCH (22:15)
--- NOTE | 2021-01-07 22:16 | ED ---
Arrhythmia/Palpitations HPI - General Stated Complaint: Tachycardia Time Seen by Provider: 01/07/21 21:56 - History of Present Illness MD Complaint: palpitations Onset/Timin -: hour(s) Context: occurred during rest Arrhythmia History: atrial fibrillation Associated Symptoms: shortness of breath - Related Data Home Medications Medication Instructions Recorded Confirmed Nitroglycerin Sl Tabs [Nitrostat] 0.4 mg SUBLINGUAL Q5M PRN 09/10/14 01/07/21 Rivaroxaban [Xarelto] 20 mg PO DAILY 10/18/14 01/07/21 Atenolol [Tenormin] 50 mg PO DAILY 12/29/16 01/07/21 Propafenone [Rythmol] 75 mg PO Q8HR 05/10/17 01/07/21 hydrALAZINE HCL [Apresoline] 25 mg PO BID 12/11/17 01/07/21 Rosuvastatin Calcium [Crestor] 5 mg PO HS 12/08/18 01/07/21 Dicyclomine [Bentyl] 10 mg PO DAILY PRN 10/14/20 01/07/21 Diphenox-Atrop 2.5-0.025 mg 1 tab PO QID PRN 10/14/20 01/07/21 [Lomotil] Losartan Potassium 50 mg PO DAILY 12/25/20 01/07/21 Omeprazole 40 mg PO DAILY 12/25/20 01/07/21 Triamterene/Hydrochlorothiazid 1 tab PO DAILY 01/07/21 01/07/21 [Triamterene-Hctz 37.5-25 mg Tb] Allergies Allergy/AdvReac Type Severity Reaction Status Date / Time atorvastatin calcium Allergy Abdominal Verified 01/07/21 23:30 [From Lipitor] Pain epinephrine Allergy Rapid Verified 01/07/21 23:30 Heart Rate levofloxacin [From Levaquin] Allergy Unknown Verified 01/07/21 23:30 Gztyfuj-Amm-Itp Reductase Allergy SEVERE Verified 01/07/21 23:30 Inhibitor MUSCLE PAIN Review of Systems ROS Statement: Those systems with pertinent positive or pertinent negative responses have been documented in the HPI. ROS Other: All systems not noted in ROS Statement are negative. Constitutional: Denies: fever, chills, weakness Respiratory: Denies: cough, dyspnea Cardiovascular: Denies: chest pain, palpitations Gastrointestinal: Denies: abdominal pain, nausea, vomiting, diarrhea Genitourinary: Denies: dysuria, hematuria Musculoskeletal: Denies: back pain Skin: Denies: rash Neurological: Denies: headache, weakness Past Medical History Past Medical History: Atrial Fibrillation, Cancer, Chest Pain / Angina, CVA/TIA, Eye Disorder, GERD/Reflux, Hyperlipidemia, Hypertension, Vascular Disorder Additional Past Medical History / Comment(s): MACULAR DEGENERATION GISELLE EYES, DIVERTICULOSIS, ANEMIA, BASAL CELL SKIN CA, CVA 2013-NO RESIDUAL EFFECTS., DYSPHAGIA - STATES CURRENTLY FOOD FEELS LIKE IT IS GETTING STUCK.VOMITING AT TIMES WITH EATING , STATES AFTER EATING SHE HAS BLOATING, GAS AND DIARRHEA., CLAUSTROPHOBIC, VERICOSE VEINS. History of Any Multi-Drug Resistant Organisms: None Reported Past Surgical History: Appendectomy, Cholecystectomy, Heart Catheterization, He rnia Repair, Hysterectomy, Joint Replacement, Orthopedic Surgery Additional Past Surgical History / Comment(s): LASER VEIN SURGERY,GISELLE CATARACT. RT KNEE ARTHROSCOPY, LT KNEE REPLACEMENT, EGD WITH DILATION., COLONOSCOPY, DIONISIO FUDOPLASTY (2013) . Past Anesthesia/Blood Transfusion Reactions: No Reported Reaction Additional Past Anesthesia/Blood Transfusion Reaction / Comment(s): claustrophobic Past Psychological History: Anxiety Additional Psychological History / Comment(s): . Smoking Status: Never smoker Past Alcohol Use History: Rare Past Drug Use History: None Reported - Past Family History Brother(s) Family Medical History: CVA/TIA, Myocardial Infarction ([place]) Mother Family Medical History: Cancer, Deep Vein Thrombosis (DVT) Additional Family Medical History / Comment(s): BREAST CANCER Father Family Medical History: Cancer Additional Family Medical History / Comment(s): PANCREATIC CANCER General Exam General appearance: alert, in no apparent distress Head exam: Present: atraumatic, normocephalic Eye exam: Present: normal appearance. Absent: scleral icterus, conjunctival injection Neck exam: Present: normal inspection Respiratory exam: Present: normal lung sounds bilaterally. Absent: respiratory distress, wheezes, rales, rhonchi, stridor Cardiovascular Exam: Present: tachycardia, irregular rhythm, normal heart sounds. Absent: systolic murmur, diastolic murmur, rubs, gallop GI/Abdominal exam: Present: soft. Absent: distended, tenderness, guarding, rebound, rigid, mass Extremities exam: Present: normal inspection, normal capillary refill, pedal edema. Absent: calf tenderness Back exam: Present: normal inspection. Absent: CVA tenderness (R), CVA tenderness (L) Neurological exam: Present: alert Skin exam: Present: warm, dry, intact, normal color. Absent: rash Course Vital Signs 01/07/21 01/08/21 22:18 00:25 Temperature 98.0 F Pulse Rate 133 H 134 H Respiratory 18 18 Rate Blood Pressure 111/87 109/81 O2 Sat by Pulse 97 94 L Oximetry EKG Findings - EKG Results: EKG: interpreted by ERMD, normal axis EKG shows: atrial fibrillation (Rate approximately 135) - Blocks, [place], Hypertrophy, ST Abn: QRS axis and voltage: low voltage (<0.5 MV total QRS and <1.0 MV in each precordial lead) Repolarization changes or abnormalities: nonspecific abnormality, ST segment, and/or T wave Medical Decision Making - Lab Data Result diagrams: 01/07/21 22:34 01/07/21 22:34 Lab Results 01/07/21 01/07/21 01/07/21 Range/Units 22:34 22:34 22:34 WBC 6.4 (3.8-10.6) k/uL RBC 3.64 L (3.80-5.40) m/uL Hgb 11.8 (11.4-16.0) gm/dL Hct 35.9 (34.0-46.0) % MCV 98.6 (80.0-100.0) fL MCH 32.3 (25.0-35.0) pg MCHC 32.8 (31.0-37.0) g/dL RDW 13.3 (11.5-15.5) % Plt Count 179 (150-450) k/uL MPV 7.9 Neutrophils % 68 % Lymphocytes % 18 % Monocytes % 7 % Eosinophils % 4 % Basophils % 0 % Neutrophils # 4.4 (1.3-7.7) k/uL Lymphocytes # 1.1 (1.0-4.8) k/uL Monocytes # 0.4 (0-1.0) k/uL Eosinophils # 0.3 (0-0.7) k/uL Basophils # 0.0 (0-0.2) k/uL PT 11.4 (9.0-12.0) sec INR 1.1 (<1.2) APTT 29.5 (22.0-30.0) sec Sodium 138 (137-145) mmol/L Potassium 4.2 (3.5-5.1) mmol/L Chloride 106 (98-107) mmol/L Carbon Dioxide 26 (22-30) mmol/L Anion Gap 6 mmol/L BUN 26 H (7-17) mg/dL Creatinine 0.95 (0.52-1.04) mg/dL Est GFR (CKD-EPI)AfAm 64 (>60 ml/min/1.73 sqM) Est GFR (CKD-EPI)NonAf 55 (>60 ml/min/1.73 sqM) Glucose 128 H (74-99) mg/dL Calcium 8.8 (8.4-10.2) mg/dL Magnesium 2.3 (1.6-2.3) mg/dL Total Bilirubin 0.3 (0.2-1.3) mg/dL AST 44 H (14-36) U/L ALT 16 (4-34) U/L Alkaline Phosphatase 75 (38-126) U/L Troponin I (0.000-0.034) ng/mL Total Protein 6.4 (6.3-8.2) g/dL Albumin 3.6 (3.5-5.0) g/dL 01/07/21 Range/Units 22:34 WBC (3.8-10.6) k/uL RBC (3.80-5.40) m/uL Hgb (11.4-16.0) gm/dL Hct (34.0-46.0) % MCV (80.0-100.0) fL MCH (25.0-35.0) pg MCHC (31.0-37.0) g/dL RDW (11.5-15.5) % Plt Count (150-450) k/uL MPV Neutrophils % % Lymphocytes % % Monocytes % % Eosinophils % % Basophils % % Neutrophils # (1.3-7.7) k/uL Lymphocytes # (1.0-4.8) k/uL Monocytes # (0-1.0) k/uL Eosinophils # (0-0.7) k/uL Basophils # (0-0.2) k/uL PT (9.0-12.0) sec INR (<1.2) APTT (22.0-30.0) sec Sodium (137-145) mmol/L Potassium (3.5-5.1) mmol/L Chloride (98-107) mmol/L Carbon Dioxide (22-30) mmol/L Anion Gap mmol/L BUN (7-17) mg/dL Creatinine (0.52-1.04) mg/dL Est GFR (CKD-EPI)AfAm (>60 ml/min/1.73 sqM) Est GFR (CKD-EPI)NonAf (>60 ml/min/1.73 sqM) Glucose (74-99) mg/dL Calcium (8.4-10.2) mg/dL Magnesium (1.6-2.3) mg/dL Total Bilirubin (0.2-1.3) mg/dL AST (14-36) U/L ALT (4-34) U/L Alkaline Phosphatase (38-126) U/L Troponin I <0.012 (0.000-0.034) ng/mL Total Protein (6.3-8.2) g/dL Albumin (3.5-5.0) g/dL Disposition Clinical Impression: Atrial fibrillation with rapid ventricular response Disposition: ADMITTED IP TO THIS HOSP Condition: Fair Instructions (If sedation given, give patient instructions): Heart Palpitations (ED) Is patient prescribed a controlled substance at d/c from ED?: No Referrals: Kamar Chris MD [Primary Care Provider] - 1-2 days
[2021-01-07 22:46] LABS: Basophils % (A) 0 %; Eosinophils # (A) 0.3 k/uL (0-0.7); Eosinophils % (A) 4 %; HCT 35.9 % (34.0-46.0); HGB 11.8 gm/dL (11.4-16.0); Lymphocytes # (A) 1.1 k/uL (1.0-4.8); Lymphocytes % (A) 18 %; MCH 32.3 pg (25.0-35.0); MCHC 32.8 g/dL (31.0-37.0); MCV 98.6 fL (80.0-100.0); Mean Platelet Volume 7.9; Monocytes # (A) 0.4 k/uL (0-1.0); Monocytes % (A) 7 %; Neutrophils # (A) 4.4 k/uL (1.3-7.7); Neutrophils % (A) 68 %; Platelet Count 179 k/uL (150-450); RBC 3.64 m/uL (3.80-5.40); RDW 13.3 % (11.5-15.5); WBC 6.4 k/uL (3.8-10.6)
[2021-01-07 22:57] LABS: INR 1.1 (<1.2); Partial Thromboplastin Time 29.5 sec (22.0-30.0); Prothrombin Time 11.4 sec (9.0-12.0)
--- NOTE | 2021-01-07 23:01 | XR ---
EXAMINATION TYPE: XR chest 1V portable DATE OF EXAM: 01/07/2021 COMPARISON: 12/25/2020 HISTORY: Dysrhythmia TECHNIQUE: Single view FINDINGS: Heart is normal. Lungs are clear of consolidation. There are no hilar masses. There are verenice st leads. Costophrenic angles are fairly clear. Thoracic aorta is atheromatous. IMPRESSION: No definite acute lung disease. No change compared to old exam. Normal heart.
[2021-01-07 23:23] LABS: Albumin 3.6 g/dL (3.5-5.0); Calcium 8.8 mg/dL (8.4-10.2); Magnesium 2.3 mg/dL (1.6-2.3); Potassium 4.2 mmol/L (3.5-5.1); Total Bilirubin 0.3 mg/dL (0.2-1.3); Total Protein 6.4 g/dL (6.3-8.2)
[2021-01-08] MEDS ORDERED: LORazepam 2 MG/ML INJ IV STA (00:08)
[2021-01-08] MEDS ORDERED: NITROGLYCERIN SL TABS 0.4 MG TAB SUBLINGUAL PRN ×2 (00:30→00:32)
[2021-01-08] MEDS ORDERED: DICYCLOMINE 10 MG CAP PO PRN (00:32)
[2021-01-08] MEDS ORDERED: DIPHENOX-ATROP 2.5-0.025 MG 1 EACH TAB PO PRN (00:32)
[2021-01-08] MEDS: PANTOPRAZOLE 40 MG TABLET PO SCH (06:54)
[2021-01-08] MEDS ORDERED: PROPAFENONE 150 MG TAB PO SCH (08:00)
[2021-01-08] MEDS: SODIUM CHLORIDE 0.9% 1,000 ML IV SCH (08:02)
[2021-01-08] MEDS: RIVAROXABAN 20 MG TAB PO SCH (08:09)
[2021-01-08] MEDS: TRIAMTERENE-HCTZ 37.5-25MG 1 EACH TAB PO SCH (08:09)
[2021-01-08] MEDS: LOSARTAN 50 MG TAB PO SCH (08:10)
[2021-01-08] MEDS: hydrALAZINE HCL 25 MG TAB PO SCH ×2 (08:10→20:21)
[2021-01-08] MEDS: atenoloL 50 MG TAB PO SCH (08:10)
--- NOTE | 2021-01-08 13:35 | HP ---
HISTORY AND PHYSICAL CHIEF COMPLAINT: Fast heart beating with shortness of breath and chest pain. HISTORY OF PRESENT ILLNESS: This is another admission for this lady who was just in the hospital last week after she went into atrial fibrillation with a rate of around 150 beats per minute. She was seen by Cardiology and sent home and was doing well until on the evening January 07; her heart sped up again to around 150 beats per minute. Blood pressure dropped slightly low and she had slight tightness in the chest. She called and she was referred to the emergency room. REVIEW OF SYSTEMS: Otherwise unremarkable. She has not had any neurologic problems, fever, chills, cough, hemoptysis, abdominal pain, etc. Past medical history, family history, and personal and social histories are all otherwise unremarkable and noncontributory or unchanged. She is anticoagulated. PHYSICAL EXAMINATION: Blood pressure is 108/65 with a pulse of 130, respirations of 35. In general she appeared to be slightly pale, but no acute distress. Skin is dry. Lymph nodes are not enlarged. Head, ears, eyes, nose, mouth and throat were normal. Neck veins were not distended. Thyroid is not enlarged. Chest is clear. Cardiac exam demonstrates a rapid heart rate. The abdomen is soft and nontender. Extremities are normal. Neurologically she is intact. She is admitted to the hospital with diagnosis: Supraventricular tachycardia. PLAN: 1. Bedrest. 2. Cardizem drip. 3. Cardiology consult once again. MARY / ELIEZERN: [id number] /
--- NOTE | 2021-01-08 13:38 | PN ---
PROGRESS NOTE DATE OF SERVICE: 01/08/2021 CHIEF COMPLAINT: Chest pain with shortness of breath and SVT. HISTORY OF PRESENT ILLNESS: This lady is feeling much better. She is back in sinus rhythm. She has had no chest pain. PHYSICAL EXAMINATION: Her chest is clear. Cardiac exam is normal. The abdomen is soft and nontender. IMPRESSION: 1. Supraventricular tachycardia. 2. Shortness of breath. 3. Chest pain. 4. History of hypertension. PLAN: Increase activity and wait for any further recommendations from Cardiology. MMODL / IJN: [id number] /
--- NOTE | 2021-01-08 14:59 | CONS ---
CONSULTATION This is an 85-year-old lady with a history of hypertension, hyperlipidemia, paroxysmal atrial fibrillation who is on Xarelto and propafenone 75 mg t.i.d. Her BP control is good. She is also on atenolol and losartan. She came into the hospital mainly with an episode of rapid heart rate. She was found to be in atrial fibrillation with rapid ventricular rate, converted to sinus rhythm, feels well. She is resting comfortably without symptoms. She was hospitalized with a similar episode before, but had hypokalemia at that time but now the electrolytes are normal. She is comfortable resting without symptoms. She has converted to sinus rhythm. PAST MEDICAL HISTORY: 1. No obstructive CAD by cardiac cath in 2015. 2. Paroxysmal atrial fibrillation. 3. Hypertension. 4. Hyperlipidemia. 5. She also has some macular degeneration as well. MEDICATIONS: Medications at home include Crestor 5 mg daily, Xarelto 20 mg daily, Tenormin 50 mg daily, propafenone 75 mg t.i.d., losartan 50 mg daily and omeprazole and Dyazide. PHYSICAL EXAMINATION: On examination, blood pressure is 108/70, pulse rate 70 per minute regular. HEENT unremarkable. Fundus was not examined by me. Neck is supple. No JVD. I do not hear a carotid bruit. Heart exam reveals S1, S2 with a short ejection systolic murmur at the base. Lungs reveal bilateral decent air entry. Abdomen is soft, nontender. Lower extremities reveal diminished pulses. No edema. Central nervous system is grossly within normal limits. LABORATORY DATA: Revealed electrolytes are normal. Troponin is negative and patient is negative for Crawford virus. IMPRESSION: 1. Paroxysmal atrial fibrillation, back in sinus rhythm. 2. Hypertension. 3. No significant obstructive coronary artery disease. RECOMMENDATIONS: I am recommending that we can increase the propafenone from 75-150 mg daily and patient can be discharged on this medicine and I will see her in the office next week as scheduled. Discussed my thoughts in detail with the patient and her . Thank you very much for the consult. MMODL / IJN: [id number] /
[2021-01-08] MEDS: PROPAFENONE 150 MG TAB PO SCH ×2 (15:14→23:04)
[2021-01-08] MEDS ORDERED: NON FORMULARY DRUG (Rosuvastatin Calcium [Crestor] 5 MG Tablet) PO SCH (21:00)
[2021-01-08 23:44] VITALS: RESP 16
[2021-01-09] MEDS: PANTOPRAZOLE 40 MG TABLET PO SCH (06:26)
[2021-01-09] MEDS: SODIUM CHLORIDE 0.9% 1,000 ML IV SCH (07:31)
[2021-01-09] MEDS: RIVAROXABAN 20 MG TAB PO SCH (07:57)
[2021-01-09] MEDS: hydrALAZINE HCL 25 MG TAB PO SCH (07:57)
[2021-01-09] MEDS: atenoloL 50 MG TAB PO SCH (07:57)
[2021-01-09] MEDS: TRIAMTERENE-HCTZ 37.5-25MG 1 EACH TAB PO SCH (07:57)
[2021-01-09] MEDS: LOSARTAN 50 MG TAB PO SCH (07:57)
[2021-01-09] MEDS: PROPAFENONE 150 MG TAB PO SCH (07:57)
[2021-01-09] MEDS ORDERED: ASPIRIN 325 MG TAB PO SCH (09:00)
[2021-01-09 09:04] LABS: Chol/HDL Ratio 2.16 Ratio; LDL Cholesterol,Calculated 34.6 mg/dL (0.0-131.0)
[2021-01-09 11:52] VITALS: BP 94/57; PULSE 67; TEMP 98.5
--- NOTE | 2021-01-09 12:48 | PN ---
PROGRESS NOTE Mrs. Nowak is in sinus rhythm. No further episodes of atrial fibrillation. She is comfortable, resting. I have increased the propafenone to 150 mg t.i.d. She can be discharged today. Vitals stable. No JVD. S1-S2 heard normally. No significant murmurs. Clear lungs. Abdomen and lower exam unchanged. Can be discharged today and I will see her in the office as scheduled next week. MMODL / IJN: [id number] /
--- NOTE | 2021-01-09 13:12 | DS ---
DISCHARGE SUMMARY Dictating discharge summary Jaye Nowak. CHIEF COMPLAINT: Shortness of breath, chest pain, and tachycardia. HISTORY OF PRESENT ILLNESS AND PHYSICAL EXAMINATION: Details of this lady's history and physical can be found in the initial workup. LABORATORY STUDIES: While she was in the hospital, she had laboratory studies, details of which can be found in the laboratory section of her chart. COURSE IN THE HOSPITAL: After admission, she was placed on bedrest, started on intravenous fluids and seen by Cardiology. She was started on Cardizem drip and she converted to sinus rhythm. Other studies were unremarkable. Cardiology doubled the dose of her flecainide from 75-150 t.i.d. She is doing well. It was felt she could go home. She will follow up with us in a day or 2. FINAL DIAGNOSES: 1. Recurrent episodes of SVT with shortness of breath and chest pain. 2. Hypertension. OPERATIONS: None. CONSULTATION: Cardiology. She is improved. MMODL / IJN: [id number] /
== END 2021-01-09 13:06 | disposition home or self-care (01) | DRG 310 ==
LOC: EC 21:40 → 3SCARD 01-08 00:30
PROVIDERS: ADMIT Family Medicine; ATTEND Family Medicine
DX: I47.1 Supraventricular tachycardia (principal); E78.5 Hyperlipidemia, unspecified; I48.0 Paroxysmal atrial fibrillation; Z20.822 Contact with and (suspected) exposure to COVID-19; I10 Essential (primary) hypertension; K21.9 Gastro-esophageal reflux disease without esophagitis; F41.9 Anxiety disorder, unspecified; H35.30 Unspecified macular degeneration; K57.90 Diverticulosis of intestine, part unspecified, without perforation or abscess without bleeding; R13.10 Dysphagia, unspecified; F40.240 Claustrophobia; I83.90 Asymptomatic varicose veins of unspecified lower extremity; Z79.01 Long term (current) use of anticoagulants; Z79.899 Other long term (current) drug therapy; Z86.73 Personal history of transient ischemic attack (TIA), and cerebral infarction without residual deficits; Z85.828 Personal history of other malignant neoplasm of skin; Z90.49 Acquired absence of other specified parts of digestive tract; Z87.19 Personal history of other diseases of the digestive system; Z90.710 Acquired absence of both cervix and uterus; Z87.42 Personal history of other diseases of the female genital tract; Z98.42 Cataract extraction status, left eye; Z98.41 Cataract extraction status, right eye; Z96.652 Presence of left artificial knee joint; Z87.39 Personal history of other diseases of the musculoskeletal system and connective tissue; Z86.2 Personal history of diseases of the blood and blood-forming organs and certain disorders involving the immune mechanism; Z98.890 Other specified postprocedural states; Z88.1 Allergy status to other antibiotic agents; Z88.8 Allergy status to other drugs, medicaments and biological substances; Z82.49 Family history of ischemic heart disease and other diseases of the circulatory system; Z80.3 Family history of malignant neoplasm of breast; Z80.0 Family history of malignant neoplasm of digestive organs; Z83.2 Family history of diseases of the blood and blood-forming organs and certain disorders involving the immune mechanism
CPT/HCPCS: 36415; 71045; 80053; 80061; 83735; 83880; 84484; 85025; 85379; 85610; 85730; 87635; 93005; 96365; 96375; 99285

== ENCOUNTER → 2021-01-19 | Outpatient (CLI) | payer MEDICARE ==
[2021-01-19 11:18] LABS: Calcium 8.7 mg/dL (8.4-10.2); Potassium 4.7 mmol/L (3.5-5.1)
--- NOTE | 2021-01-19 11:39 | US ---
EXAMINATION TYPE: US venous doppler duplex LE DATE OF EXAM: 01/19/2021 11:02 AM COMPARISON: US 2014 CLINICAL HISTORY: R60.0 Localized edema. SIDE PERFORMED: Bilateral TECHNIQUE: The lower extremity deep venous system is examined utilizing real time linear array sonog terrell with graded compression, doppler sonography and color-flow sonography. VESSELS IMAGED: Common Femoral Vein Deep Femoral Vein Greater Saphenous Vein * Femoral Vein Popliteal Vein Small Saphenous Vein * Proximal Calf Veins (* superficial vessels) Right Leg: Negative for DVT Left Leg: Negative for DVT IMPRESSION: 1. Bilateral lower extremity ultrasound negative for deep venous thrombosis.
== END | disposition home or self-care (01) ==
LOC: RADUSWWP 09:26
PROVIDERS: ATTEND Family Medicine
DX: R60.0 Localized edema (principal)
CPT/HCPCS: 36415; 80048; 93970

== ENCOUNTER → 2022-01-27 | Outpatient (CLI) | payer MEDICARE ==
--- NOTE | 2022-01-30 10:49 | MM ---
Reason for Exam: Screening (asymptomatic). Last mammogram was performed 1 year(s) and 7 month(s) ago. Patient History: Menarche at age 12. First Full-Term at age 18. Left ovary removed at age 56. Right ovary removed at age 56. Hysterectomy at age 56. Postmenopausal. Other cancer. Mother had breast cancer, age 67. Prior Study Comparison: 12/24/2017 Bilateral Screening Mammogram, [facility]. 02/04/2019 Bilateral Screening Mammogram, [facility]. 06/25/2020 Bilateral Screening Mammogram, [facility]. Tissue Density: There are scattered fibroglandular densities. Findings: Analyzed By CAD. There is no suspicious group of microcalcifications or new suspicious mass in either breast. Overall Assessment: Negative, BI-RAD 1 Management: Screening Mammogram of both breasts in 1 year. A clinical breast exam by your physician is recommended on an annual basis and results should be correlated with mammographic findings. [facility] will attempt to contact patient to return for supplemental views and ultrasound if indicated. Electronically signed and approved by: Agapito Cochran DO
== END | disposition home or self-care (01) ==
LOC: RADMAMWWP 10:58
PROVIDERS: ATTEND Obstetrics & Gynecology
DX: Z12.31 Encounter for screening mammogram for malignant neoplasm of breast (principal); Z80.3 Family history of malignant neoplasm of breast; Z90.721 Acquired absence of ovaries, unilateral; Z78.0 Asymptomatic menopausal state
CPT/HCPCS: 77063; 77067

== ENCOUNTER → 2023-07-27 | Outpatient (CLI) | payer MEDICARE ==
--- NOTE | 2023-07-27 12:39 | FL ---
EXAMINATION TYPE: FL barium swallow DATE OF EXAM: 07/27/2023 CLINICAL INDICATION: 88 year-old female unspecified dysphasia, R13.10. Patient with prior Angela fund oplication. Food stuck in the mid chest. Previous stretching x1. COMPARISON: 12/29/2016 Total Fluoroscopy Time: 2 minutes 43 seconds DAP: 419.00 mGycm2 53 images obtained. FINDINGS: The swallowing mechanism is normal. Anterior endplate spondylosis especially C4-C6 levels c ausing mild impression onto the back wall of the cervical esophagus but without any obstruction. The hypopharyngeal anatomy is otherwise preserved. 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 This appears to have increased in narrowing compared to 2017. There is severe gastroesophageal reflux when the patient is brought supine/prone. Moderate esophageal dysmotility demonstrated with stagnation in reflux of contrast within prone/supin e. No mucosal lesion is clearly identified. IMPRESSION: 1. Redemonstrated residual/recurrent small hiatal hernia. 2. 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 3. Severe gastroesophageal reflux and moderate esophageal dysmotility.
== END | disposition home or self-care (01) ==
LOC: RADUSWWP 09:58
PROVIDERS: ATTEND Family Medicine
DX: K44.9 Diaphragmatic hernia without obstruction or gangrene (principal); K21.9 Gastro-esophageal reflux disease without esophagitis; K22.4 Dyskinesia of esophagus; K22.2 Esophageal obstruction; R13.10 Dysphagia, unspecified
CPT/HCPCS: 74220

== ENCOUNTER 2023-09-08 18:57 | Emergency (ER) | payer MEDICARE ==
[2023-09-08 19:01] VITALS: RESP 18; TEMP 98
--- NOTE | 2023-09-08 19:57 | ED ---
Wound/Laceration HPI - General Chief Complaint: Wound/Laceration Stated Complaint: Right ankle laceration Time Seen by Provider: 09/08/23 18:57 Source: patient, EMS, RN notes reviewed Mode of arrival: EMS Limitations: no limitations - History of Present Illness Initial Comments: 88-year-old female who presents with complaints of a bleeding varicose vein that spontaneously ruptured just prior to arrival she was standing apparently at a doorway when she felt a pop and had blood spurting out of her right ankle. Per paramedics there was approximately 250's of blood loss. A pressure bandage was placed patient has had this happen in the past and actually had to have a suture put in when she was down in [place]. She is on anticoagulants. No trauma reported no other complaints at this time - Related Data Home Medications Medication Instructions Recorded Confirmed Nitroglycerin Sl Tabs [Nitrostat] 0.4 mg SL Q5M PRN 09/10/14 04/08/22 Rivaroxaban [Xarelto] 20 mg PO DAILY 10/18/14 04/08/22 atenoloL [Tenormin] 50 mg PO DAILY 12/29/16 04/08/22 Rosuvastatin Calcium [Crestor] 5 mg PO DAILY 12/08/18 04/08/22 Dicyclomine [Bentyl] 10 mg PO DAILY PRN 10/14/20 04/08/22 Diphenox-Atrop 2.5-0.025 mg 1 - 2 tab PO QID PRN 10/14/20 04/08/22 [Lomotil] Omeprazole 40 mg PO DAILY 12/25/20 04/08/22 Furosemide [Lasix] 20 mg PO DAILY 02/19/21 04/08/22 Loratadine [Claritin] 10 mg PO DAILY PRN 02/19/21 04/08/22 Vit C/E/Zn/Coppr/Lutein/Zeaxan 1 cap PO DAILY 02/19/21 04/08/22 [Preservision Areds 2 Softgel] Famotidine [Pepcid] 20 mg PO DAILY 04/08/22 04/08/22 Propafenone [Rythmol] 150 mg PO Q8H 04/08/22 04/08/22 Previous Rx's Medication Instructions Recorded Clopidogrel [Plavix] 75 mg PO DAILY #30 tablet 04/11/22 Cyanocobalamin [Vitamin B-12 1,000 mcg IM DAILY #10 each 04/11/22 Injection] Levothyroxine Sodium [Synthroid] 25 mcg PO DAILY@0630 #30 tab 04/11/22 Losartan [Cozaar] 100 mg PO DAILY #30 tab 04/11/22 hydrALAZINE HCL [Apresoline] 50 mg PO BID #60 tab 04/11/22 Allergies Allergy/AdvReac Type Severity Reaction Status Date / Time levofloxacin [From Levaquin] Allergy Unknown Verified 09/08/23 19:01 atorvastatin calcium AdvReac Abdominal Verified 09/08/23 19:01 [From Lipitor] Pain epinephrine AdvReac Rapid Verified 09/08/23 19:01 Heart Rate Kaqatsu-DOY-MtY Reductase AdvReac SEVERE Verified 09/08/23 19:01 Inhibitor MUSCLE PAIN [Conhplz-Jjx-Ita Reductase Inhibitor] Review of Systems ROS Statement: Those systems with pertinent positive or pertinent negative responses have been documented in the HPI. ROS Other: All systems not noted in ROS Statement are negative. Past Medical History Past Medical History: Atrial Fibrillation, Cancer, Chest Pain / Angina, CVA/TIA, Eye Disorder, GERD/Reflux, Hyperlipidemia, Hypertension, Vascular Disorder Additional Past Medical History / Comment(s): MACULAR DEGENERATION GISELLE EYES, DIVERTICULOSIS,IBS, ANEMIA, BASAL CELL SKIN CA, CVA 2013-NO RESIDUAL EFFECTS., DYSPHAGIA in past, STATES AFTER EATING SHE HAS BLOATING, GAS AND DIARRHEA., CLAUSTROPHOBIC, VERICOSE VEINS. History of Any Multi-Drug Resistant Organisms: None Reported Past Surgical History: Appendectomy, Cholecystectomy, Heart Catheterization, Hernia Repair, Hysterectomy, Joint Replacement, Orthopedic Surgery Additional Past Surgical History / Comment(s): LASER VEIN SURGERY,GISELLE CATARACT. RT KNEE ARTHROSCOPY, LT KNEE REPLACEMENT, EGD WITH DILATION., COLONOSCOPY, DIONISIO FUDOPLASTY (2013) . Past Anesthesia/Blood Transfusion Reactions: No Reported Reaction Additional Past Anesthesia/Blood Transfusion Reaction / Comment(s): claustrophobic Past Psychological History: Anxiety Smoking Status: Never smoker Past Alcohol Use History: Rare Past Drug Use History: None Reported - Past Family History Brother(s) Family Medical History: CVA/TIA, Myocardial Infarction (CA) Mother Family Medical History: Cancer, Deep Vein Thrombosis (DVT) Additional Family Medical History / Comment(s): BREAST CANCER Father Family Medical History: Cancer Additional Family Medical History / Comment(s): PANCREATIC CANCER General Exam - General Exam Comments Initial Comments: This is a well-developed well-nourished awake alert oriented x 4 female Limitations: no limitations General appearance: alert Head exam: Present: atraumatic, normocephalic, normal inspection Eye exam: Present: normal appearance, PERRL, EOMI. Absent: scleral icterus, conjunctival injection, periorbital swelling ENT exam: Present: normal exam, mucous membranes moist Neck exam: Present: normal inspection, full ROM. Absent: tenderness, meningismus, lymphadenopathy Respiratory exam: Present: normal lung sounds bilaterally. Absent: respiratory distress, wheezes, rales, rhonchi, stridor Cardiovascular Exam: Present: regular rate, normal rhythm, normal heart sounds. Absent: systolic murmur, diastolic murmur, rubs, gallop, clicks Extremities exam: Present: full ROM, normal capillary refill, other (Patient right lower extremity demonstrates a pressure dressing that was removed by myself there was small amount of oozing noted to the medial malleolus region.) Back exam: Present: full ROM Neurological exam: Present: alert, oriented X3, CN II-XII intact Psychiatric exam: Present: normal affect, normal mood Skin exam: Present: warm, dry, normal color. Absent: intact Course Vital Signs 09/08/23 18:58 Temperature 98.0 F Pulse Rate 60 Respiratory 18 Rate Blood Pressure 141/74 O2 Sat by Pulse 95 Oximetry Procedures - Procedures Initial comment: I did place Gelfoam on the wound and did use a pressure dressing over this. There was good capillary refill and dorsalis pedis pulses afterwards. Bleeding appears to be controlled Medical Decision Making - Medical Decision Making This patient reveals he is feeling well no evidence of bleeding through the dressing at this time pulses remained intact capillary refill less than 2 seconds. We did discuss care of the wound. Patient will be discharged home with her family I did recommend she loosen the dressing up if it become uncomfortable and at least keep it secure for 2 to 3 days and then a follow-up by itself. Was pt. sent in by a medical professional or institution (, PA, REWORK MACHINE OPERATOR, urgent care, hospital, or penitentiary...) When possible be specific @ -[No] Did you speak to anyone other than the patient for history (EMS, parent, family, police, friend...)? What history was obtained from this source @ -[Paramedics upon arrival] Did you review nursing and triage notes (agree or disagree)? Why? @ -[I reviewed and agree with nursing and triage notes] Were old charts reviewed (outside hosp., previous admission, EMS record, old EKG, old radiological studies, urgent care reports/EKG's, penitentiary records)? Report findings @ -[No old charts were reviewed] Differential Diagnosis (chest pain, altered mental status, abdominal pain women, abdominal pain men, vaginal bleeding, weakness, fever, dyspnea, syncope, headache, dizziness, GI bleed, back pain, seizure, CVA, palpatations, mental health, musculoskeletal)? @ -[Ruptured varicose vein] EKG interpreted by me (3pts min.). @ -[Educated] X-rays interpreted by me (1pt min.). @ -[None done] CT interpreted by me (1pt min.). @ -[None done] U/S interpreted by me (1pt. min.). @ -[None done] What testing was considered but not performed or refused? (CT, X-rays, U/S, labs)? Why? @ -[None] What meds were considered but not given or refused? Why? @ -[None] Did you discuss the management of the patient with other professionals (professionals i.e. , PA, REWORK MACHINE OPERATOR, lab, RT, psych nurse, high school social studies tutor, assembling fabricator, teacher, chief quality officer, nurse case manager)? Give summary @ -[No] Was smoking cessation discussed for >3mins.? @ -[No] Was critical care preformed (if so, how long)? @ -[No] Were there social determinants of health that impacted care today? How? (Homelessness, low income, unemployed, alcoholism, drug addiction, transportation, low edu. Level, literacy, decrease access to med. care, long term, rehab)? @ -[No] Was there de-escalation of care discussed even if they declined (Discuss DNR or withdrawal of care, Hospice)? DNR status @ -[No] What co-morbidities impacted this encounter? (DM, HTN, Smoking, COPD, CAD, Cancer, CVA, ARF, Chemo, Hep., AIDS, mental health diagnosis, sleep apnea, morbid obesity)? @ -Patient is on anticoagulants macular degeneration Was patient admitted / discharged? Hospital course, mention meds given and route, prescriptions, significant lab abnormalities, going to OR and other pertinent info. @ -Hospital course was discharged home with family Undiagnosed new problem with uncertain prognosis? @ -No Drug Therapy requiring intensive monitoring for toxicity (Heparin, Nitro, Insulin, Cardizem)? @ -No Were any procedures done? @ -No Diagnosis/symptom? @ -Ruptured varicose vein Acute, or Chronic, or Acute on Chronic? @ -Acute Uncomplicated (without systemic symptoms) or Complicated (systemic symptoms)? @ -Default Side effects of treatment? @ -No Exacerbation, Progression, or Severe Exacerbation? @ -No Poses a threat to life or bodily function? How? (Chest pain, [place], CA, pneumonia, PE, COPD, DKA, ARF, appy, cholecystitis, CVA, Diverticulitis, Homicidal, Suicidal, threat to staff... and all critical care pts) @ -No Disposition Clinical Impression: Ruptured varicose vein Disposition: HOME SELF-CARE Condition: Good Instructions (If sedation given, give patient instructions): Acute Wound Care (ED) Is patient prescribed a controlled substance at d/c from ED?: No Referrals: Kamar Chris MD [Primary Care Provider] - 1-2 days Time of Disposition: 20:43 Decision Date: 09/08/23 Decision Time: 20:43
[2023-09-08 20:55] VITALS: BP 140/67; PULSE 63
== END 2023-09-08 21:02 | disposition home or self-care (01) ==
LOC: EC 18:57
DX: I83.891 Varicose veins of right lower extremity with other complications (principal); Z88.1 Allergy status to other antibiotic agents; Z88.8 Allergy status to other drugs, medicaments and biological substances; Z86.73 Personal history of transient ischemic attack (TIA), and cerebral infarction without residual deficits
CPT/HCPCS: 99283

== ENCOUNTER 2023-11-09 15:28 | Day surgery (SDC) | payer MEDICARE ==
[2023-11-08 09:58] VITALS: BMI 23.9
[2023-11-09] MEDS: LACTATED RINGERS 1,000 ML IV SCH (16:03)
[2023-11-09] MEDS: MIDAZOLAM 2 MG/2 ML VIAL IV ONE (16:15)
[2023-11-09] MEDS ORDERED: LIDOCAINE 2% (PF) 20 MG/ML 5 ML VIAL ONE (16:57)
[2023-11-09] MEDS ORDERED: PROPOFOL 10 MG/ML 20 ML VIAL IV ONE (16:57)
--- NOTE | 2023-11-09 17:12 | P.PCN ---
Date of Procedure: 11/09/23 Procedure(s) Performed: BRIEF HISTORY: Patient is a 88-year-old, pleasant, white female Endoscopy as a part of evaluation of progressive dysphagia to solids for the last few months duration. Last EGD with dilation was performed 3 years ago.. PROCEDURE PERFORMED: Esophagogastroduodenoscopy with dilation. PREOPERATIVE DIAGNOSIS: Progressive dysphagia to solids. IV sedation per anesthesia. PROCEDURE: After informed consent was obtained, the patient was brought into the endoscopy unit. IV sedation was administered by Anesthesia under continuous monitoring. Initially the Olympus GIF-140 video endoscope was inserted into the mouth. Esophagus intubated without any difficulty. It was gradually advanced into the stomach and duodenum and carefully examined. The bulb and the second part of the duodenum appeared normal. The scope at this time was withdrawn to the stomach, adequately insufflated with air, and upon careful examination, mucosa of the antrum, had gastritis. Mucosa of the body, cardia and the fundus appeared normal. The scope was then withdrawn into the esophagus. Small hiatal hernia noted. The GE junction was located at 36 cm from the incisors. There was a distal esophageal stricture identified and this was dilated using 15 to 18 mm TTS balloon in a sequential fashion for 60 seconds. The esophagus appeared normal. There were no erosions or ulcerations seen and the patient tolerated the procedure well. IMPRESSION: 1. Distal esophageal stricture status post balloon dilation using 15 to 18 mm TTS TTS balloon. 2. Small hiatal hernia. RECOMMENDATIONS: The findings of this examination were discussed with the patient as well as her family. She was advised to be on a clear liquid diet for 2 hours. Continue Prilosec 20 mg daily and follow antireflux measures.. In the office if has worsening symptoms.
[2023-11-09 17:34] VITALS: RESP 16
[2023-11-09 17:49] VITALS: BP 173/79; PULSE 60
== END 2023-11-09 18:10 | disposition home or self-care (01) ==
LOC: ORWHC2ENDO 15:28
PROVIDERS: ATTEND Internal Medicine Gastroenterology
DX: R13.10 Dysphagia, unspecified
CPT/HCPCS: 43249

== ENCOUNTER 2024-01-06 05:25 | Emergency (ER) | payer MEDICARE ==
[2024-01-06 06:02] LABS: Basophils % (A) 1 %; Eosinophils # (A) 0.2 k/uL (0-0.7); Eosinophils % (A) 5 %; HCT 36.6 % (34.0-46.0); HGB 12.2 gm/dL (11.4-16.0); Lymphocytes # (A) 1.9 k/uL (1.0-4.8); Lymphocytes % (A) 38 %; MCH 33.2 pg (25.0-35.0); MCHC 33.2 g/dL (31.0-37.0); Mean Platelet Volume 7.2; Monocytes # (A) 0.4 k/uL (0-1.0); Monocytes % (A) 8 %; Neutrophils # (A) 2.1 k/uL (1.3-7.7); Neutrophils % (A) 44 %; Platelet Count 235 k/uL (150-450); RBC 3.66 m/uL (3.80-5.40); RDW 12.8 % (11.5-15.5); WBC 4.8 k/uL (3.8-10.6)
[2024-01-06 06:12] LABS: INR 1.3 (<1.2); Partial Thromboplastin Time 29.4 sec (22.0-30.0); Prothrombin Time 13.5 sec (10.0-12.5)
[2024-01-06 06:13] LABS: ALT 13 U/L (4-34); AST 19 U/L (14-36); African American GFR (CKD) 57 (>60 ml/min/1.73 sqM); Albumin 3.5 g/dL (3.5-5.0); Alkaline Phosphatase 71 U/L (38-126); Anion Gap 5 mmol/L; Blood Urea Nitrogen 16 mg/dL (7-17); Calcium 8.5 mg/dL (8.4-10.2); Carbon Dioxide 27 mmol/L (22-30); Chloride 107 mmol/L (98-107); Glucose 98 mg/dL (74-99); Magnesium 2.1 mg/dL (1.6-2.3); Non-African American GFR(CKD) 50 (>60 ml/min/1.73 sqM); Phosphorus 3.6 mg/dL (2.5-4.5); Potassium 3.5 mmol/L (3.5-5.1); Sodium 139 mmol/L (137-145); Total Bilirubin 0.4 mg/dL (0.2-1.3); Total Protein 5.9 g/dL (6.3-8.2)
[2024-01-06] MEDS: SODIUM CHLORIDE 0.9% 1,000 ML IV STA (06:31)
--- NOTE | 2024-01-06 06:36 | ED ---
Extremity Problem HPI - General Chief complaint: Recheck/Abnormal Lab/Rx Stated complaint: Hand tingling Time Seen by Provider: 01/06/24 06:05 Source: patient, EMS, RN notes reviewed Mode of arrival: EMS Limitations: no limitations - History of Present Illness Initial comments: This is an 88-year-old female who presents to the emergency department for nu mbness in the right hand. States that she has had intermittent bouts of numbness in her right fingers throughout the last several days. This tends to be worse at night and is waking her up in the middle of the night. Believes that all fingers are effected equally. This causes pain in the hand as well. She has occasional soreness going up the arm, however for the most part the symptoms are localized to the hand. The hand itself occasionally gets painful, however it is only the fingers that are numb. Denies any injuries, however she did notice bruising and swelling around the right wrist yesterday. Denies any problems with her left arm or lower extremities. Reports a history of stroke 2 years ago that she states was related to A-fib. At that time her symptom was being unable to use her right upper extremity. She did not have any numbness and states that symptoms feel different. She is still on Xarelto. Denies any chest pain or shortness of breath. - Related Data Home Medications Medication Instructions Recorded Confirmed Nitroglycerin Sl Tabs [Nitrostat] 0.4 mg SL Q5M PRN 09/10/14 11/08/23 Rivaroxaban [Xarelto] 20 mg PO DAILY 10/18/14 11/08/23 atenoloL [Tenormin] 50 mg PO DAILY 12/29/16 11/08/23 Rosuvastatin Calcium [Crestor] 5 mg PO HS 12/08/18 11/08/23 Dicyclomine [Bentyl] 10 mg PO DAILY PRN 10/14/20 11/08/23 Diphenox-Atrop 2.5-0.025 mg 1 - 2 tab PO QID PRN 10/14/20 11/08/23 [Lomotil] Omeprazole 40 mg PO HS 12/25/20 11/08/23 Furosemide [Lasix] 20 mg PO DAILY 02/19/21 11/08/23 Loratadine [Claritin] 10 mg PO DAILY PRN 02/19/21 11/08/23 Famotidine [Pepcid] 20 mg PO DAILY 04/08/22 11/08/23 Propafenone [Rythmol] 150 mg PO TID 04/08/22 11/08/23 Carboxymethylcellulose Sodium 1 drop BOTH EYES DIRECTED 11/08/23 11/08/23 [Refresh Tears] Previous Rx's Medication Instructions Recorded Clopidogrel [Plavix] 75 mg PO DAILY #30 tablet 04/11/22 Levothyroxine Sodium [Synthroid] 25 mcg PO DAILY@0630 #30 tab 04/11/22 Losartan [Cozaar] 100 mg PO DAILY #30 tab 04/11/22 hydrALAZINE HCL [Apresoline] 50 mg PO BID #60 tab 04/11/22 Allergies Allergy/AdvReac Type Severity Reaction Status Date / Time levofloxacin [From Levaquin] Allergy Unknown Verified 11/09/23 15:52 atorvastatin calcium AdvReac Abdominal Verified 11/09/23 15:52 [From Lipitor] Pain epinephrine AdvReac Rapid Verified 11/09/23 15:52 Heart Rate Omnleib-OTK-BsN Reductase AdvReac SEVERE Verified 11/09/23 15:52 Inhibitor MUSCLE PAIN [Zmvbklf-Sof-Rqr Reductase Inhibitor] Review of Systems ROS Statement: Those systems with pertinent positive or pertinent negative responses have been documented in the HPI. ROS Other: All systems not noted in ROS Statement are negative. Past Medical History Past Medical History: Atrial Fibrillation, Cancer, Chest Pain / Angina, CVA/TIA, Eye Disorder, GERD/Reflux, Hyperlipidemia, Hypertension, Osteoarthritis (OA), Thyroid Disorder, Vascular Disorder Additional Past Medical History / Comment(s): MACULAR DEGENERATION GISELLE EYES, DIVERTICULOSIS,IBS, ANEMIA, BASAL CELL SKIN CA, CVA 2013-NO RESIDUAL EFFECTS., DYSPHAGIA in past, STATES AFTER EATING SHE HAS BLOATING, GAS AND DIARRHEA., CLAUSTROPHOBIC, VERICOSE VEINS. History of Any Multi-Drug Resistant Organisms: None Reported Past Surgical History: Appendectomy, Cholecystectomy, Heart Catheterization, Hernia Repair, Hysterectomy, Joint Replacement, Orthopedic Surgery Additional Past Surgical History / Comment(s): LASER VEIN SURGERY,GISELLE CATARACT. RT KNEE ARTHROSCOPY, LT KNEE REPLACEMENT, EGD WITH DILATION., COLONOSCOPY, NISSE N FUDOPLASTY (2013) . Past Anesthesia/Blood Transfusion Reactions: No Reported Reaction Additional Past Anesthesia/Blood Transfusion Reaction / Comment(s): claustrophobic. no blood transfusion Past Psychological History: Anxiety Smoking Status: Never smoker Past Drug Use History: None Reported - Past Family History Brother(s) Family Medical History: CVA/TIA, Myocardial Infarction (SD) Mother Family Medical History: Cancer, Deep Vein Thrombosis (DVT) Additional Family Medical History / Comment(s): BREAST CANCER Father Family Medical History: Cancer Additional Family Medical History / Comment(s): PANCREATIC CANCER General Exam Limitations: no limitations General appearance: alert, in no apparent distress Head exam: Present: atraumatic, normocephalic, normal inspection Respiratory exam: Present: normal lung sounds bilaterally. Absent: respiratory distress, wheezes, rales, rhonchi, stridor Cardiovascular Exam: Present: regular rate, normal rhythm, normal heart sounds. Absent: systolic murmur, diastolic murmur, rubs, gallop, clicks Extremities exam: Present: other (Mild ecchymosis, tenderness, and swelling to the volar aspect of the right wrist. Decreased sensation to the tips of the fingers. Full range of motion. 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 2+ radial pulses. The rest of the right upper extremity is nontender, not swollen, or erythematous.) Neurological exam: Present: alert, oriented X3, CN II-XII intact Expanded Cerebellar function: Finger to Nose: Normal, Heel to Alexis: Normal, Romberg: Normal Motor strength exam: RUE: 5, LUE: 5, RLE: 5, LLE: 5 Psychiatric exam: Present: normal affect, normal mood Course Vital Signs 01/06/24 01/06/24 01/06/24 05:26 06:53 07:32 Temperature 97.6 F Pulse Rate 59 L 55 L 55 L Respiratory 16 18 16 Rate Blood Pressure 151/71 122/62 128/75 O2 Sat by Pulse 96 96 96 Oximetry Medical Decision Making - Medical Decision Making This is an 88-year-old female who presents to the emergency department for numbness in the right fingers. Was pt. sent in by a medical professional or institution? @ -No Did you speak to anyone other than the patient for history? @ -No Did you review nursing and triage notes? @ -Yes, and I agree, it is accurate with regards to the patient's symptoms. Were old charts reviewed? @ -No Differential Diagnosis? @ -Carpal tunnel, ulnar neuropathy, cervical radiculopathy, CVA/TIA, vitamin deficiency, this is not meant to be an all-inclusive list. EKG interpreted by me (3pts min.)? @ -EKG interpreted by me demonstrating the following: X-rays interpreted by me (1pt min.)? @ -X-ray of the right hand and wrist obtained. My interpretation identifies no acute fractures. CT interpreted by me (1pt min.)? @ -CT scan of the brain obtained. My interpretation identifies no evidence of an acute intracranial hemorrhage. U/S interpreted by me (1pt. min.)? @ -Not obtained What testing was considered but not performed? (CT, X-rays, U/S, labs)? Why? @ -None What meds were considered but not given? Why? @ -None Did you discuss the management of the patient with other professionals? @ -No Did you reconcile home meds? @ -No Was smoking cessation discussed for >3mins.? @ -No Was critical care preformed (if so, how long)? @ -No Were there social determinants of health that impacted care today? How? (Homelessness, low income, unemployed, alcoholism, drug addiction, transportation, low edu. Level, literacy, decrease access to med. care, custodial, rehab)? @ -No Was there de-escalation of care discussed even if they declined? (Discuss DNR or withdrawal of care, Hospice)? @ -No What co-morbidities impacted this encounter? (DM, HTN, Smoking, COPD, CAD, Cancer, CVA, Hep., AIDS, mental health diagnosis, sleep apnea, morbid obesity)? @ -A-fib, vascular disorder, CVA/TIA Was patient admitted / discharged? @ -Discharged. Lab work unremarkable. Urinalysis negative for signs of infection. On exam the patient had only some paresthesias of the fingers. She was still able to feel me touching the fingers, it was just reduced. There was also some bruising and tenderness over the volar aspect of the right wrist. CT scan of the brain reveals no acute process. X-ray of the right hand and wrist also revealed no acute findings. Patient's symptoms gradually improved on their own while in the emergency department. Discussed with the patient that symptoms are most likely related to paresthesias from nerve compression, especially if there is swelling near the right wrist. However, a neurological process cannot necessarily be ruled out. Advised admission for neuroconsult if symptoms are still present. However, patient advised that she is starting to feel better and because her workup at this point is unremarkable she is more comfortable going home and following up with her primary care provider. Advised Tylenol and diclofenac gel to be used as needed for pain control and follow-up with her PCP in the next couple of days. Strict return parameters discussed. Patient discharged home in stable condition. Case discussed with ED attending Dr. Christopher. Return precautions reviewed in depth, the patient is instructed to return to the emergency department with any new, worsening, or concerning symptoms. Patient verbalized understanding. Undiagnosed new problem with uncertain prognosis? @ -None Drug Therapy requiring intensive monitoring for toxicity (Heparin, Nitro, Insulin, Cardizem)? @ -None Were any procedures done? @ -None Diagnosis/symptom? @ -Right hand paresthesias Acute, or Chronic, or Acute on Chronic? @ -Acute Uncomplicated (without systemic symptoms) or Complicated (systemic symptoms)? @ -Uncomplicated Side effects of treatment? @ -None Exacerbation, Progression, or Severe Exacerbation] @ -Not applicable Poses a threat to life or bodily function? @ -Unlikely - Lab Data Result diagrams: 01/06/24 05:40 01/06/24 05:40 Lab Results 01/06/24 01/06/24 01/06/24 Range/Units 05:40 05:40 05:40 WBC 4.8 (3.8-10.6) k/uL RBC 3.66 L (3.80-5.40) m/uL Hgb 12.2 (11.4-16.0) gm/dL Hct 36.6 (34.0-46.0) % MCV 100.0 (80.0-100.0) fL MCH 33.2 (25.0-35.0) pg MCHC 33.2 (31.0-37.0) g/dL RDW 12.8 (11.5-15.5) % Plt Count 235 (150-450) k/uL MPV 7.2 Neutrophils % 44 % Lymphocytes % 38 % Monocytes % 8 % Eosinophils % 5 % Basophils % 1 % Neutrophils # 2.1 (1.3-7.7) k/uL Lymphocytes # 1.9 (1.0-4.8) k/uL Monocytes # 0.4 (0-1.0) k/uL Eosinophils # 0.2 (0-0.7) k/uL Basophils # 0.0 (0-0.2) k/uL PT 13.5 H (10.0-12.5) sec INR 1.3 H (<1.2) APTT 29.4 (22.0-30.0) sec Sodium 139 (137-145) mmol/L Potassium 3.5 (3.5-5.1) mmol/L Chloride 107 (98-107) mmol/L Carbon Dioxide 27 (22-30) mmol/L Anion Gap 5 mmol/L BUN 16 (7-17) mg/dL Creatinine 1.02 (0.52-1.04) mg/dL Est GFR (CKD-EPI)AfAm 57 (>60 ml/min/1.73 sqM) Est GFR (CKD-EPI)NonAf 50 (>60 ml/min/1.73 sqM) Glucose 98 (74-99) mg/dL Plasma Lactic Acid Sammy (0.7-2.0) mmol/L Calcium 8.5 (8.4-10.2) mg/dL Phosphorus 3.6 (2.5-4.5) mg/dL Magnesium 2.1 (1.6-2.3) mg/dL Total Bilirubin 0.4 (0.2-1.3) mg/dL AST 19 (14-36) U/L ALT 13 (4-34) U/L Alkaline Phosphatase 71 (38-126) U/L Troponin I (0.000-0.034) ng/mL Total Protein 5.9 L (6.3-8.2) g/dL Albumin 3.5 (3.5-5.0) g/dL Urine Color Urine Appearance (Clear) Urine pH (5.0-8.0) Ur Specific [place] (1.001-1.035) Urine Protein (Negative) Urine Glucose (UA) (Negative) Urine Ketones (Negative) Urine Blood (Negative) Urine Nitrite (Negative) Urine Bilirubin (Negative) Urine Urobilinogen (<2.0) mg/dL Ur Leukocyte Esterase (Negative) Urine RBC (0-5) /hpf Urine WBC (0-5) /hpf Ur Squamous Epith Cells (0-4) /hpf Hyaline Casts (0-2) /lpf Urine Mucus (None) /hpf 01/06/24 01/06/24 01/06/24 Range/Units 05:40 05:40 07:27 WBC (3.8-10.6) k/uL RBC (3.80-5.40) m/uL Hgb (11.4-16.0) gm/dL Hct (34.0-46.0) % MCV (80.0-100.0) fL MCH (25.0-35.0) pg MCHC (31.0-37.0) g/dL RDW (11.5-15.5) % Plt Count (150-450) k/uL MPV Neutrophils % % Lymphocytes % % Monocytes % % Eosinophils % % Basophils % % Neutrophils # (1.3-7.7) k/uL Lymphocytes # (1.0-4.8) k/uL Monocytes # (0-1.0) k/uL Eosinophils # (0-0.7) k/uL Basophils # (0-0.2) k/uL PT (10.0-12.5) sec INR (<1.2) APTT (22.0-30.0) sec Sodium (137-145) mmol/L Potassium (3.5-5.1) mmol/L Chloride (98-107) mmol/L Carbon Dioxide (22-30) mmol/L Anion Gap mmol/L BUN (7-17) mg/dL Creatinine (0.52-1.04) mg/dL Est GFR (CKD-EPI)AfAm (>60 ml/min/1.73 sqM) Est GFR (CKD-EPI)NonAf (>60 ml/min/1.73 sqM) Glucose (74-99) mg/dL Plasma Lactic Acid Sammy 1.0 (0.7-2.0) mmol/L Calcium (8.4-10.2) mg/dL Phosphorus (2.5-4.5) mg/dL Magnesium (1.6-2.3) mg/dL Total Bilirubin (0.2-1.3) mg/dL AST (14-36) U/L ALT (4-34) U/L Alkaline Phosphatase (38-126) U/L Troponin I <0.012 (0.000-0.034) ng/mL Total Protein (6.3-8.2) g/dL Albumin (3.5-5.0) g/dL Urine Color Light Yellow Urine Appearance Cloudy H (Clear) Urine pH 5.5 (5.0-8.0) Ur Specific [place] 1.014 (1.001-1.035) Urine Protein Negative (Negative) Urine Glucose (UA) Negative (Negative) Urine Ketones Negative (Negative) Urine Blood Negative (Negative) Urine Nitrite Negative (Negative) Urine Bilirubin Negative (Negative) Urine Urobilinogen <2.0 (<2.0) mg/dL Ur Leukocyte Esterase Small H (Negative) Urine RBC 2 (0-5) /hpf Urine WBC 2 (0-5) /hpf Ur Squamous Epith Cells 12 H (0-4) /hpf Hyaline Casts 1 (0-2) /lpf Urine Mucus Rare H (None) /hpf - Radiology Data Radiology results: report reviewed, image reviewed Disposition Clinical Impression: Right hand paresthesia Disposition: HOME SELF-CARE Instructions (If sedation given, give patient instructions): Paresthesia (ED) Additional Instructions: Return to the emergency department with any new, worsening, or concerning symptoms. Continue to take Tylenol as needed for pain relief. You can also use [id number] diclofenac gel to help with pain and inflammation of the hand. Follow up with your primary care provider in 1-2 days. Is patient prescribed a controlled substance at d/c from ED?: No Referrals: Kamar Chris MD [Primary Care Provider] - 1-2 days Time of Disposition: 07:54
--- NOTE | 2024-01-06 07:32 | XR ---
EXAMINATION TYPE: XR hand complete RT DATE OF EXAM: 01/06/2024 6:41 AM COMPARISON: None. CLINICAL INDICATION: Female, 88 years old with history of Pain, tingling and numbness TECHNIQUE: 3 view(s) obtained. FINDINGS: Structures are osteopenic splenic. Mild diffuse joint space narrowing is present. More advanced degen erative changes in the first carpal metacarpal region. No acute fracture is evident. Soft tissues are normal. Follow up exams can be performed 7-10 days from acute trauma for continued pain. IMPRESSION: 1. No acute osseous abnormality radiographically apparent. 2. Osteopenia. This could be confirmed with bone density [facility], , 01/06/2024 7:30 AM
--- NOTE | 2024-01-06 07:32 | CT ---
EXAMINATION TYPE: CT brain wo con DATE OF EXAM: 01/06/2024 7:19 AM COMPARISON: 04/08/2022 CLINICAL INDICATION: Female, 88 years old with history of weakness, Weakness TECHNIQUE: CT of the brain is performed utilizing 3 mm thick sections through the posterior fossa and 3 mm thick sections through the remaining calvarium. Study is performed within 24 hours of arrival to the hospital. Contrast used: mL of , (none if empty) CT DLP: 1095.9 mGycm, Automated exposure control for dose reduction was used. FINDINGS: No abnormal hyperdensity is present to suggest an acute intracranial hemorrhage. No mass lesion is evident. No acute infarcts are evident. 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 Periventricular white matter hypodensity is present, likely on the basis of chronic white matter ischemic changes. Findings are st able from comparison Ventricles and sulci are appropriate for the patient age. Paranasal sinuses and mastoid air cells within the [id number] are clear. IMPRESSION: 1. No acute intracranial process. Follow up MRI can be performed as clinically indicated. 2. 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 3. Chronic appearing periventricular white matter ischemic-type changes [facility], , 01/06/2024 7:27 AM
--- NOTE | 2024-01-06 07:35 | XR ---
EXAMINATION TYPE: XR wrist complete RT DATE OF EXAM: 01/06/2024 6:41 AM COMPARISON: None. CLINICAL INDICATION: Female, 88 years old with history of Pain, numbness tingling TECHNIQUE: 4 view(s) obtained. FINDINGS: There are moderately advanced degenerative changes in the scaphotrapezoid joint space and at the firs t carpal metacarpal junction. No acute fractures are evident. Soft tissues appear normal. Remaining joint spaces and mild degenerat madelaine change. Follow-up exams can be performed 7-10 days from acute trauma for continued pain. If there is pain at the anatomic snuff box, nuclear medicine bone scan could BE performed for additional evaluation. IMPRESSION: 1. No acute osseous abnormality right wrist. 2. Moderate degenerative changes in the region of the thumb metacarpal junction [facility], , 01/06/2024 7:32 AM
[2024-01-06 07:48] LABS: Appearance,Urine Cloudy (Clear); Bilirubin,Urine Negative (Negative); Blood,Urine Negative (Negative); Color,Urine Light Yellow; Glucose,Urine (UA) Negative (Negative); Hyaline Casts,Urine 1 /lpf (0-2); Ketones,Urine Negative (Negative); Leukocyte Esterase,Urine Small (Negative); Mucus,Urine Rare /hpf; Nitrite,Urine Negative (Negative); PH, Urine 5.5 (5.0-8.0); Protein,Urine Negative (Negative); RBC,Urine 2 /hpf (0-5); Specific Gravity,Urine 1.014 (1.001-1.035); Squamous Epithelial Cell,Urine 12 /hpf (0-4); Urobilinogen,Urine <2.0 mg/dL (<2.0); WBC,Urine 2 /hpf (0-5)
[2024-01-06 08:27] VITALS: BP 136/65; PULSE 60; RESP 18; TEMP 98
== END 2024-01-06 08:26 | disposition home or self-care (01) ==
LOC: EC 05:25
DX: R20.2 Paresthesia of skin (principal); I48.91 Unspecified atrial fibrillation; R00.1 Bradycardia, unspecified; Z88.1 Allergy status to other antibiotic agents; Z88.8 Allergy status to other drugs, medicaments and biological substances; Z86.73 Personal history of transient ischemic attack (TIA), and cerebral infarction without residual deficits; Z86.69 Personal history of other diseases of the nervous system and sense organs
CPT/HCPCS: 36415; 70450; 80053; 81001; 83605; 83735; 84100; 84484; 85025; 85610; 85730; 93005; 96360; 96361; 99284

== ENCOUNTER → 2024-02-01 | Outpatient (CLI) | payer MEDICARE ==
--- NOTE | 2024-02-01 23:55 | BD ---
EXAMINATION TYPE: Axial Bone Density DATE OF EXAM: 02/01/2024 CLINICAL HISTORY: 88 years old Female. ICD-10 CODE: M85.80 OSTEOPENIA , Additional History: Height: 62.25 Weight: 141.6 FRAX RISK QUESTIONS: Alcohol (3 or more units per day): no Family History (Parent hip fracture): no Glucocorticoids (More than 3mos): no (Ex: prednisone, prednisolone, methylprednisolone, dexamethasone, and hydrocortisone). History of Fracture in Adulthood: no Secondary Osteoporosis: 1. Type 1 Diabetes: no 2. Hyperthyroidism: no 3. Menopause before 45: no 4. Malnutrition: no 5. Chronic liver disease: no Rheumatoid Arthritis: no Current Tobacco Use: no RISK FACTORS HISTORY OF: Hip Fracture (Right/Left): no Spine Fracture: no History of Wrist Fracture: no Surgery to Spine/Hip(right/left)/Wrist (right/left): no MEDICATIONS: Thyroid Medications: Levothyroxine How Long: ? Osteoporosis Medications: no EXAM MEASUREMENTS: Bone mineral densitometry was performed using the [employer] System. Bone mineral density as measured about the Lumbar spine is: ----- L1-L4(G/cm2): 1.154 T Score Values are as follows: ----- L1: -0.1 ----- L2: -1.1 ----- L3: -0.4 ----- L4: 0.3 ----- L1-L4: -0.2 Z Score Values are as follows: ----- L1: 1.9 ----- L2: 0.9 ----- L3: 1.6 ----- L4: 2.3 ----- L1-L4: 1.8 Bone mineral density has: decreased -2.5 % since study of: 09/08/2014 Bone mineral density about the R hip (g/cm2): 0.645 Bone mineral density about the L hip (g/cm2): 0.657 T Score values are as follows: -----R Neck: -2.7 -----L Neck: -2.8 -----R Total: -2.9 -----L Total: -2.8 Z Score values are as follows: -----R Neck: -0.1 -----L Neck: -0.3 -----R Total: -0.47 -----L Total: -0.3 Bone mineral density has: decreased -22.1 % since study of: 09/08/2014 FRAX%s: The graph provided illustrates a 18.8% chance for a major osteoporotic fx and a 7.3% chance f or the hips probability for fx in 10 years time. IMPRESSION: Osteoporosis (T Score less than -2.5). There is increased fracture risk and therapy is usually indicated based on age. Re-Screen 1-2 years. NOTE: T-SCORE=SD OF THE YOUNG ADULT MEAN. [facility], , 02/01/2024 11:53 PM
== END | disposition home or self-care (01) ==
LOC: RADBDWWP 12:09
PROVIDERS: ATTEND Family Medicine
DX: M81.0 Age-related osteoporosis without current pathological fracture (principal)
CPT/HCPCS: 77080